=== PATIENT | female | born 1940 | race Caucasian/White ===

== ENCOUNTER 2023-07-02 17:12 | Inpatient (IN) | payer MEDICARE, SELFPAY ==
[2023-07-02] VITALS (7 sets, daily range): BP systolic 112–134; BP diastolic 52–87; BMI 24.6; BMI 23.4
--- NOTE | 2023-07-02 14:29 | ED.GENMED ---
History of Present Illness
General
Chief Complaint: Change in Mental Status
Source: patient and family
Exam Limitations: dementia
Time Seen by Provider: 07/02/23 13:41
Nursing documentation reviewed up to this point in time: agreed with
Travel History
Have you had any contact with someone who has COVID-19?: No
Do you have any symptoms of coronavirus? Fever > 100 degrees, chills, cough, shortness of breath, sore throat, loss of taste or smell, muscle aches, or headache?: No
History of Present Illness
History of Present Illness:
Patient with history of dementia, presents to ED from home secondary to increased confusion noted by family over the past 4 days. Patient was evaluated by her primary care physician 2 days ago, during which time urine test did not show any any
infection. Patient herself has no complaints however. Denies headache. Denies dizziness. Denies loss of sensation or weakness. Denies difficulty with speech. Denies chest pain. Denies abdominal pain. Denies recent change in medications or
diet. Of note, patient had mechanical fall 1 month ago during which time she fractured her left arm which is in a cast.
Review of Systems
Review of Systems
Allergies reviewed?: Yes
Unable to obtain full review of systems at this time due to: dementia
All Other Systems: Not applicable
Phy Exam
Physical Exam
Physical Exam:
Physical Exam
General: no apparent distress, not acutely ill. afebrile.
Head: nc/at. eomi
Neck: supple. no meningeal signs.
Heart: s1/s2 regular rate and rhythm, no murmur. equal radial pulses.
Lungs: no acute respiratory distress. clear bilaterally
Abdomen: normal bowel sounds. not tender.
Neuro: alert and oriented. no focal neurological deficits
Skin: no rash
Psychiatric: well kept. interactive and cooperative. pleasantly confused
Extremities: no edema. no calf tenderness.
Course
Orders/Labs/Results
Orders:
Orders
07/02/23 Breakfast
IDDSI 4 - Pureed
At Your Request: Non-Participating
Does patient need a safe tray?: No
07/02/23 14:00
Electrocardiogram (*1) Urgent
Reason for Study: TIA/Stroke
CT Head W/o Iv Contrast Urgent
Comment:
Reason For Exam: mental status change
EKG- Treatment ONCE
07/02/23 14:28
Basic Metabolic Panel Urgent
Complete Blood Count/With Diff Urgent
Glycohemoglobin (HgbA1c) Urgent
TSH Urgent
Troponin I Urgent
07/02/23 15:04
Urinalysis Reflex To Culture Urgent
Date Specimen was Collected: 07/02/23
Time Specimen was Collected: 15:03
Urine Microscopic Reflex Cult Urgent
07/02/23 16:29
Admit/Transfer Patient As Directed
Co-Sign Provider:
Level of Care: Inpatient admission
Assign to:: Telemetry
Physician / Group: santosh
Diagnosis: CVA
Reason for Telemetry: CVA/TIA
Date to Stop Telemetry: 07/05/23
Time to Stop Telemetry: 11:00
Reason for Hospitalization: cva
Expected length of stay greater than two midnights?: Yes
ELOS- Estimated Length of Stay in days: 3
I certify the patient meets the requirements for IP care: Yes
07/02/23 16:31
Code Status As Directed
Resuscitation Status: Full Code
07/02/23 16:44
Aspirin 325 mg PO NOW STA
Clopidogrel Bisulfate [Plavix] 300 mg PO NOW STA
07/02/23 17:50
DIETARY CONSULT Routine
Reason for Consult: stroke/TIA
07/02/23 19:15
Acetaminophen [Tylenol/Feverall] 650 mg RECTAL Q4HPRN PRN
Acetaminophen [Tylenol] 650 mg PO Q4HPRN PRN
07/02/23 19:15
Echo 2D MMode Color/Doppler Routine
Reason for Study: confusion
Case Management Consult ONCE
Case Management Consult: Discharge Planning
Comment: stroke/tia
NEUROLOGY CONSULT Urgent
Consulting Provider: Dimple Gillis
Was physician already notified: Yes
Service Engine Repairer Urgent
Activity As Directed
Activity Level: As Tolerated
NIH Stroke Scale As Directed
Directions: Per protocol
Comment: every shift and with any change in condition or mental status
Neurological Checks As Directed
Frequency: q4h
Additional Instructions:: q4h x 24h upon admission to the floor, then qshift & with any change in condition
and mental status
Patient Education As Directed
Type: Stroke education packet
Comment: provide to patient and family
Pneumatic Compression Sleeves As Directed
Type: Thigh high
Swallow Screening CVA/TIA ONLY As Directed
Comment: NPO until swallowing screening completed
If patient FAILS swallow screening:: NPO, Speech Therapy consult, Aspiration Precautions
If patient PASSES swallow screening, diet:: Cholesterol Lowering
Vital Signs As Directed
Frequency: Per unit guidelines
Ot Eval And Treat Routine
Pt Eval And Treat Routine
Activity Level: As Tolerated
Speech Therapy Eval & Treat Routine
DX Deep Vein Thrombosis Video Routine
07/02/23 19:30
Atorvastatin [Lipitor] 40 mg PO QPM
07/03/23 06:49
Basic Metabolic Panel IN AM
Cardiovascular Evaluation IN AM
Complete Blood Count/No Diff IN AM
07/03/23 08:00
Aspirin Chewable [Low Strength Aspirin] 81 mg PO DAILY
Clopidogrel Bisulfate [Plavix] 75 mg PO DAILY
07/04/23 06:00
Basic Metabolic Panel IN AM
Complete Blood Count/No Diff IN AM
07/05/23 06:00
Basic Metabolic Panel IN AM
Complete Blood Count/No Diff IN AM
07/05/23 11:00
DC Protocol for Telemetry ONCE
07/06/23 06:00
Basic Metabolic Panel IN AM
Complete Blood Count/No Diff IN AM
07/07/23 06:00
Basic Metabolic Panel IN AM
Complete Blood Count/No Diff IN AM
Abnormal Lab Results
07/02/23 07/02/23
14:28 15:04
RBC 4.00 L 10^6/uL
(4.20-5.40)
Hgb 11.9 L g/dL
(12.0-16.0)
Hct 35.1 L %
(37.0-47.0)
Absolute Lymphs (auto) 4.1 H 10^3/uL
(1.2-3.4)
Sodium 134 L mmol/L
(135-145)
Creatinine 0.5 L mg/dL
(0.6-1.0)
Leukocyte Esterase Rfl Trace A
(Negative)
Urine Bacteria (Reflex) Few A
(Negative)
07/02/23 14:28
07/02/23 14:28
Vital Signs
Initial and Last Documented VS:
Initial Vital Signs
Temp Pulse Resp BP Pulse Ox
98.6 F 70 16 129/67 96
07/02/23 12:02 07/02/23 12:02 07/02/23 12:02 07/02/23 12:02 07/02/23 12:02
Last Documented Vital Signs
Temp Pulse Resp BP Pulse Ox
98.2 F 89 16 118/74 95
07/03/23 03:09 07/03/23 03:09 07/03/23 03:09 07/03/23 03:09 07/03/23 03:09
MDM/Problems Addressed
MDM/Problems Addressed:
CT head report reviewed and discussed with on-call neurologist, Dr. Gillis. Recommends further workup and starting asa/plavix
*EKG
Interpreted by ED Provider?: Yes
EKG Intrepretation Date: 07/02/23
Heart Rate: 72
Rate: normal
Rhythm: sinus
[place]: normal axis
*Critical Care Note
Total Time (30-74mins, 75-104mins- exclusive of procedures): Not Applicable
ED Attending Note
-
Portions of this chart may have been created with voice recognition software.� Occasional wrong word or��sound alike� substitutions may have occurred due to the inherent limitations of voice recognition software.
Discharge Plan
Departure
Patient Disposition: Admit
Date of Disposition: 07/02/23
Time of Disposition: 16:11
Admit to: Telemetry
Presentation/result/management discussed w/ accepting MD/DO: Hospitalist
Patient with high blood pressure during this ER visit?: Yes
Discharge Problem:
Acute CVA (cerebrovascular accident)
Interventions
Interventions:
*Risk Screen - Suicide Last Done: 07/02/23 19:46
*General Assessment Last Done: 07/02/23 13:45
*Neglect/Abuse Screening Last Done: 07/02/23 13:45
ED- Fall Risk Assessment Last Done: 07/02/23 12:02
*ED COVID-19 Vaccine History Last Done: 07/02/23 12:02
*Nursing Disposition Last Done: 07/02/23 19:06
ED- Pulmonary Assessment Last Done: 07/02/23 13:47
ED- Neurological Assessment Last Done: 07/02/23 13:47
ED Swallowing Screen Last Done: 07/02/23 18:03
Discharge Date and Time
Discharge Date/Time: 07/02/23 19:07
[2023-07-02 14:37] LABS: % Basophils 0.7 % (0-2); % Eosinophils 2.5 % (0-6); % Immature Granulocytes 0.2 % (0-0.5); % Monocytes 4.9 % (1.7-9.3); % Neutrophils 48.7 % (42.2-75.2); Absolute Basophils 0.1 10^3/uL (0-0.2); Absolute Eosinophils 0.2 10^3/uL (0-0.7); Absolute Lymphocytes 4.1 10^3/uL (1.2-3.4); Absolute Monocytes 0.5 10^3/uL (0.1-0.6); Absolute Neutrophils 4.6 10^3/uL (1.4-6.5); Hematocrit 35.1 % (37.0-47.0); Hemoglobin 11.9 g/dL (12.0-16.0); Mean Corp Hgb Conc. 33.9 g/dL (33.0-37.0); Mean Corpuscular Hgb 29.8 pg (27.0-31.0); Mean Corpuscular Volume 87.8 fL (81.0-99.0); Mean Platelet Volume 10.1 fL (7.4-10.4); Nucleated Red Blood Cells % 0 %; Platelet Count 225 10^3/uL (130-400); Red Cell Dist. Width 13.5 % (11.5-14.5); White Blood Cell Count 9.4 10^3/uL (4.8-10.8)
[2023-07-02 15:04] LABS: Blood Urea Nitrogen 14 mg/dl (7-17); Calcium 9.4 mg/dl (8.4-10.2); Carbon Dioxide 25 mmol/L (22-30); Chloride 104 mmol/L (98-107); Estimated Creatinine Clearance 54 ml/min; Glucose 82 mg/dl (70-99); Sodium 134 mmol/L (135-145); eGFR > 60.00
[2023-07-02 15:18] LABS: Urine Albumin Negative (Neg - Trace); Urine Bilirubin Negative (Negative); Urine Character Clear (Clear); Urine Color Yellow; Urine Glucose Negative (Negative); Urine Ketone Negative (Negative); Urine Leukocyte Trace (Negative); Urine Nitrite Negative (Negative); Urine Occult Blood Negative (Negative); Urine Urobilinogen Negative (Neg - 1+)
[2023-07-02 15:25] LABS: Urine Bacteria Few (Negative); Urine Red Blood Cell 0-2 /HPF (0-2)
[2023-07-02 15:25] LABS: Troponin I < 0.012 ng/ml
[2023-07-02 15:33] LABS: TSH 1.96 uIU/ml (0.47-4.68)
--- NOTE | 2023-07-02 16:15 | HPS.HSE ---
Addendum entered and electronically signed by Shannon Amaral MD 07/11/23 14:34:
Medications on admission are unable to be verified or confirmed at the time of admission
Original Note:
Family Physician
-
Family Physician: Amy Lopez
Chief Complaint
-
confusion
History of Present Illness
82-year-old with past medical history for coronary artery disease, hyperlipidemia, dementia presented to us with confusion since Tuesday night. Patient did not remember her family members. Patient could not remember where she was. Which
progressively got worse. She was taken to PCP, her urinalysis were negative. Patient denied any fever or chills. Patient denied any headache, dizziness, syncopal episode patient denied chest pain or short of breath. Patient denied abdominal
pain, nausea, vomiting, diarrhea. Patient denied dysuria hematuria.
patient had fall couple weeks ago, displaced wrist.she has a cast on her left wrist.
Head CT with 4.5 cm subacute versus old nonhemorrhagic infract in the left temporal lobe, 3 mm acute versus old lateral infract in the right thalamus. Patient received a dose of aspirin and Plavix in ER. Admitting for further management
Medical History
Past Medical History
Past Medical History: Reports Other
Additional Past Medical History:
Coronary artery disease
Dementia
thorat ca
Past Surgical History: Reports Other
Additional Past Surgical History:
Coronary artery stented
part of tongue removed
Social History
Tobacco: Non-smoker
Alcohol: None
Drug: None
Living: With Family
Family History
Family History: Not pertinent
Allergies / Home Medications
Allergies reflects when Allergies were last updated in [employer].
Home Medications with original date entered in [facility]
Allergy/Medication List:
Allergies
Allergy/AdvReac Type Severity Reaction Status Date / Time
Iodinated Contrast Media Allergy Unknown Verified 07/02/23 13:31
Review of Systems
-
Constitutional: Reports No Symptoms
EENT: Reports No Symptoms
Respiratory: Reports No Symptoms
Cardiac: Reports No Symptoms
Abdomen/GI: Reports No Symptoms
: Reports No Symptoms
Musculoskeletal: Reports No Symptoms
Skin: Reports No Symptoms
Neurological: Reports No Symptoms
Endocrine: Reports No Symptoms
Hematologic/Lymphatic: Reports No Symptoms
Psych: Reports Other (Confusion)
Physical Exam
Vital Signs
Vital Signs
Temp Pulse Resp BP Pulse Ox
98.6 F 66 16 112/67 95
07/02/23 12:02 07/02/23 13:45 07/02/23 13:45 07/02/23 13:34 07/02/23 13:45
Physical Exam
General: Well Developed, Well Nourished and No Apparent Distress
HEENT: NormoCephalic, Moist mucous membranes and Atraumatic
Respiratory: Clear
Cardiac: S1/S2 and Regular Rhythm; No Murmur or Rub
GI: Soft, Non Tender, Non Distended and Normal Bowel Sounds; No Organomegaly
Rectal: Deferred by Provider
Musculoskeletal: No Clubbing, No Cyanosis and No Edema
Skin: No Rash
Neuro: AO x 3 and Nonfocal/grossly intact
Psych: Calm
Laboratory Results
-
07/02/23 14:28
07/02/23 14:28
Laboratory Results
Troponin I < 0.012 ng/ml 07/02/23 14:28
Data Reviewed
-
CT Scan: Report Reviewed by me
Lab Data: Labs Reviewed by me
Impression/Plan
-
# Metabolic encephalopathy likely from subacute infract
-Head CT 4.5 cm subacute versus old nonhemorrhagic infarct in the left temporal lobe.There is 3 mm acute versus old lacunar infarct in the right thalamus.There is moderate diffuse cortical atrophy with extensive nonspecific white matter changes
-Aspirin and Plavix continued
-MRI/MRA
-obtain ECHO
-lipid profile, a1c
-obtain UA
-PT/OT consult
-Neurology consult
# DVT prophylaxis
-SCD
# CODE STATUS
-Full code
--- NOTE | 2023-07-02 16:42 | W.PN.UPDATE ---
Update Note
Progress Note Update
HPI: 82-year-old with past medical history for coronary artery disease, hyperlipidemia, dementia presented with increasing confusion since Tuesday night. She was taken to her PCP, and her urinalysis was apparently negative. Per family has also
noted some expressive and receptive aphasia.
Of note, she fell a couple of weeks ago and displaced her wrist. She currently has a cast on her left forearm.
In the ED, her head CT noted a 4.5 cm subacute versus old nonhemorrhagic infract in the left temporal lobe, 3 mm acute versus old lateral infract in the right thalamus.
Patient received a dose of aspirin and Plavix in ER.
A/P:
# Acute Metabolic encephalopathy with some expressive and receptive aphasia likely from subacute infract
Head CT noted 4.5 cm subacute versus old nonhemorrhagic infarct in the left temporal lobe. There is 3 mm acute versus old lacunar infarct in the right thalamus.
Check MRI brain and MRA head and neck.
Cont Aspirin and Plavix
Check ECHO
Check Lipid and A1c
SPL eval, pureed diet for now
Can obtain UA
Neurology consult
PT/OT eval
DVT prophylaxis-SCD
CODE STATUS-Full code
[2023-07-02] MEDS: ASPIRIN 325 MG PO (16:47)
[2023-07-02] MEDS: PLAVIX 300 MG PO (16:47)
--- NOTE | 2023-07-02 20:00 | PTCARENOTE ---
Pt arrived to unit around 193. Daughter and son-in law at bed side and assisted with admission questions. Pt ambulated fro stretcher to bed with the assistance of her cane brought from home. Pt vital signs stable, and denies any pain. NIH scale,
and swallow screen immediately performed at bedside. Pt passed the swallow exam and then proceeded to consume the puree dinner that was sent up with her. Bed alarm placed. Pt is oriented to the room and call carrasquillo is within reach. Pt instructed to
ring appropriately.
[2023-07-02] MEDS: LIPITOR 40 MG PO (22:34)
[2023-07-02] MEDS: LEXAPRO 5 MG PO (22:38)
[2023-07-03] VITALS (8 sets, daily range): BP systolic 88–129; BP diastolic 52–74; PULSE 64–76; O2SAT 95; BMI 23.4
[2023-07-03 07:47] LABS: Hemoglobin 11.8 g/dL (12.0-16.0); Mean Corp Hgb Conc. 32.8 g/dL (33.0-37.0); Mean Corpuscular Hgb 29.4 pg (27.0-31.0); Mean Corpuscular Volume 89.8 fL (81.0-99.0); Mean Platelet Volume 10.5 fL (7.4-10.4); Platelet Count 238 10^3/uL (130-400); Red Blood Cell Count 4.01 10^6/uL (4.20-5.40); Red Cell Dist. Width 13.4 % (11.5-14.5); White Blood Cell Count 9.6 10^3/uL (4.8-10.8)
[2023-07-03 08:14] LABS: Blood Urea Nitrogen 11 mg/dl (7-17); Calcium 9.6 mg/dl (8.4-10.2); Carbon Dioxide 23 mmol/L (22-30); Chloride 106 mmol/L (98-107); Estimated Creatinine Clearance 54 ml/min; Glucose 83 mg/dl (70-99); HDL Cholesterol 49 mg/dl; LDL Cholesterol, Calculated 86 mg/dl; Potassium 4.2 mmol/L (3.5-5.1); Sodium 137 mmol/L (135-145); Total Cholesterol 157 mg/dl (50-199); Triglyceride 112 mg/dl (10-149); Very Low Density Lipoprotein 22 mg/dl (0-30); eGFR > 60.00
--- NOTE | 2023-07-03 10:04 | PTOTSP ---
SPEECH THERAPY SWALLOW EVALUATION:
Patient presents with clinical signs of oropharyngeal dysphagia, likely acute related to subacute CVA, and possibly chronic related to possible unknown history of head/neck cancer? per patient report (no note of this in chart review), though pt a
poor historian. Asymmetrical dorsal lingual surface. Unable to fully assess solids at this time given poorly fitting dentures. Pt remains at risk for aspiration given confusion/impulsivity. Recommend IDDSI Level 4 Puree diet, thin liquids. 100%
supervision with meals. Medications whole in puree. Aspiration precautions: Upright positioning, small single sips, slow rate of intake. Speech therapy to follow, assess diet tolerance and modify as appropriate, re-assess solids, assess
speech/language/cognitive communication skills with full evaluation to follow.
RECOMMEND:
1) IDDSI Level 4 Puree diet, thin liquids
2) Medications whole in puree
3) 100% supervision with meals
4) Aspiration precautions: Upright positioning, small single sips, slow rate of intake
5) Speech therapy to follow, assess diet tolerance and modify as appropriate, re-assess solids, assess speech/language/cognitive communication skills with full evaluation to follow
[2023-07-03 10:13] LABS: Glycohemoglobin (HgbA1c) 5.6 % (4.0-5.6)
--- NOTE | 2023-07-03 11:04 | W.PN.HOSP.TC ---
Today's Communication/Plan
-
see A/P
Assessment / Plan
Assessment / Plan
HPI: 82-year-old with past medical history for coronary artery disease, hyperlipidemia, dementia presented with increasing confusion since Tuesday night. She was taken to her PCP, and her urinalysis was apparently negative. Per family has also
noted some expressive and receptive aphasia.
Of note, she fell a couple of weeks ago and displaced her wrist. She currently has a cast on her left forearm.
In the ED, her head CT noted a 4.5 cm subacute versus old nonhemorrhagic infract in the left temporal lobe, 3 mm acute versus old lateral infract in the right thalamus.
Patient received a dose of aspirin and Plavix in ER.
A/P:
# Acute Metabolic encephalopathy with some expressive and receptive aphasia likely from subacute infract
Head CT noted 4.5 cm subacute versus old nonhemorrhagic infarct in the left temporal lobe. There is 3 mm acute versus old lacunar infarct in the right thalamus.
Check MRI brain and MRA head and neck.
Cont Aspirin and Plavix
Check ECHO
LDL at 86
A1c at 5.6%
SPL eval recc to cont pureed diet and thin liquid
UA only showing few bacteria and trace leucocyte esterase
Neurology consulted
PT/OT eval
DVT prophylaxis- SCD
CODE STATUS- Full code
updated granddaughter on the phone
Anticipated Discharge: 24 - 48 hours
Subjective/Interval History
-
Date of Service: July 03, 2023
Objective Data
-
Labs:
Laboratory Results
07/03/23
06:49
WBC 9.6
Hgb 11.8 L
Hct 36.0 L
Plt Count 238
Sodium 137
Potassium 4.2
Chloride 106
Carbon Dioxide 23
BUN 11
Creatinine 0.4 L
Glucose 83
Calcium 9.6
Vital Signs:
Vital Signs
Temp Pulse Resp BP Pulse Ox
36.7 C 78 16 110/61 95
07/03/23 07:12 07/03/23 07:12 07/03/23 07:12 07/03/23 07:12 07/03/23 07:12
I&O
07/02/23 07/03/23 07/04/23
06:59 06:59 06:59
Intake Total 120 / 120
Balance 120 / 120
Review of Systems
-
All other systems: Reviewed and negative
Physical Exam
-
General: Well Developed, Well Nourished, No Apparent Distress, Comfortable and Conversant; Negative Respiratory Distress
HEENT: Normocephalic, Atraumatic, Nose Appears Normal and Ears Appear Normal; Negative Oxygen
Respiratory: Clear to Auscultation and Non Labored Respirations; Negative Accessory Resp Muscle Use
Cardiac: Regular Rhythm and S1/S2
GI: Soft, Nontender, Nondistended and Normal Bowel Sounds
Skin: Warm and Dry
Neuro: Awake, Alert and Nonfocal/Grossly Intact
Psych: Calm
Data Reviewed
-
CT Scan: Report Reviewed by me
Labs: Labs Reviewed by me
--- NOTE | 2023-07-03 11:55 | CM ---
CM following re: discharge planning.
Reviewed pt's chart, met with pt and spoke to pt's granddaughter Reanna.
Pt is an 82 year old female, admitted with primary dx of CVA.
Pt is not a great historian and she tried all her best to participate in the interview. Per granddaughter Reanna, pt lives with daughter Shira in [place], 2 steps to enter. per granddaughter, pt has been diagnosed with dementia 2-3 years ago and it has
been observed progressing. per granddaughter, pt ambulates with a cane.
Pt's granddaughter asked to help with the process of obtaining Medicaid to apply for caregiver/periodontal assistant services. [employer] [place] phone number provided and granddaughter will call to apply for community based services.
PT and OT evaluations noted - home PT vs SNF recommended. Pt's family is aware and they aware of choices/resources.
PCP: Amy Lopez
Pharmacy: [facility]
D/c plan: home PT vs SNF. Family deciding.
CM will follow with discharge plan updates as hospitalization progresses
[2023-07-03] MEDS: PLAVIX 75 MG PO (12:42)
[2023-07-03] MEDS: LOW STRENGTH ASPIRIN 81 MG PO (12:43)
--- NOTE | 2023-07-03 14:12 | CON.NEURO4 ---
Consultation - Neurology 4
-
CONSULTING PHYSICIAN: Elis
REFERRING PHYSICIAN: ED
DICTATED BY: Elis
DATE/TIME OF REQUEST: 07/02/23 afternoon
DATE/TIME OF CONSULTATION: 07/03/23 at 1330
Reason for Consultation: stroke
History of Present Illness:
82-year-old female with a history of dementia due to alcohol abuse, prior stroke 20 to 30 years ago, CAD and throat cancer brought in yesterday after experiencing increasing confusion since Tuesday. Family reported that she did not remember them
and did not know where she was. Her memory progressively worsened. She also had some expressive and receptive aphasia. She was taken to her PCP first and her UA was negative.
She had an unwitnessed fall a few weeks ago and has a cast on her left wrist. Head CT in the ER showed concern for stroke and she was admitted. Her daughter states that she is now back to her baseline. She was loaded with DAPT in the ED.
Past Medical History: prior stroke 20-30 years ago with 'weakness on one side,' dementia due to ETOH abuse diagnosed 7 years ago at [facility], CAD, throat cancer
Surgical History: cardiac stent, tongue resection
Family History: reviewed, noncontributory
Social History: quit ETOH but previously drank heavily for at least 5 years, nonsmoker, no drug use, lives with daughter
Allergies
Iodinated Contrast Media Allergy (Verified 07/02/23 13:31)
Unknown
Home Medications Table - record
�Medication �Instructions �Recorded �Confirmed
atorvastatin 40 mg tablet 40 mg PO DAILY High Cholesterol 07/02/23
escitalopram oxalate 5 mg tablet 5 mg PO DAILY Mental Health/Anxiety 07/02/23
Review of Symptoms:
Patient denies any fever, headache, chest pain, shortness of breath, GI or symptoms.
�Per the HPI.�All systems are reviewed negative except above.
Vital Signs:
Vital Signs
Temp Pulse Resp BP Pulse Ox
97.7 F 65 18 112/68 96
07/03/23 11:51 07/03/23 11:51 07/03/23 11:51 07/03/23 11:51 07/03/23 11:51
Lab Results
07/03/23 06:49
07/03/23 06:49
Sodium 137 mmol/L (135-145) 07/03/23 06:49
Potassium 4.2 mmol/L (3.5-5.1) 07/03/23 06:49
BUN 11 mg/dl (7-17) 07/03/23 06:49
Glucose 83 mg/dl (70-99) 07/03/23 06:49
Calcium 9.6 mg/dl (8.4-10.2) 07/03/23 06:49
LDL Cholesterol, Calc 86 mg/dl 07/03/23 06:49
Physical Exam:
The patient is afebrile, heart sounds S1 and S2 are regular, and chest is clear to auscultation bilaterally.
NIH Stroke Scale:
I performed the NIH stroke scale on the patient on 07/03/23 at 1330. The patient scored 2 points on the NIH stroke scale assessment, which were assigned as follows: inability to state month, age which appears to be her baseline.
Neurologic Examination:
The patient is awake, alert and oriented x 2, unable to state month--thought it was April; thought her age was 52; gave a vague historian; dtr provided details at bedside; patient has a h/o dementia. She is able to follow commands and answer
questions appropriately. There is no aphasia or dysarthria. On cranial nerve assessment, pupils are 3 mm bilateral, round and reactive to light and accommodation. Visual robbins are full. Extraocular movements are intact. Facial sensations are intact
and bilaterally symmetrical, there is no facial asymmetry. Hearing is intact bilaterally to normal conversation volume. Tongue palate and uvula are midline. Sternocleidomastoid strengths are full bilaterally. Motor strengths are 5/5 bilateral upper
and lower extremities on medical research [place] scale except LLE which was 5-/5 initially but seemed to be pain limited--5/5 on repeat exam. There is no drift or involuntary movement noted. Deep tendon reflexes are 2+ bilateral upper and lower
extremities and Babinski is absent bilaterally. Sensations of pain, touch, temperature and vibration are intact and bilaterally symmetrical. There was no extinction noted on double simultaneous stimulation. Coordination is intact by finger to nose
bilaterally. Exam of LUE somewhat limited, L forearm cast in place.
Neuro Imaging:
HCT:
4.5 cm subacute versus old nonhemorrhagic infarct in the left temporal lobe
There is 3 mm acute versus old lacunar infarct in the right thalamus
There is moderate diffuse cortical atrophy with extensive nonspecific white matter changes as described above.
Impression:
SERGIO YUSUF is a 82 year old F who has presented to the hospital with worsening confusion since Tuesday night. She has now returned to baseline. HCT done in ED concerning for stroke.
Patient has the following risk factors for their symptoms: age, old stroke, alcohol abuse, CAD, throat ca
IV Tenecteplase/IAT candidacy: out of the window
Recommendations:
-check MRI brain without contrast to clarify timing of strokes seen on HCT
-BP goal is normotension.
-loaded with dapt in ED, continue dapt x 21 days, then d/c plavix, continue ASA 81mg daily
-check CUS
- Check hemoglobin A1C. Goal is normoglycemia.
- Increase atorvastatin to 80mg qhs. LDL is 86. Goal LDL after stroke is <70.
- Check an echocardiogram.
-PT/OT/ST evaluations
- DVT prophylaxis
-continue neurochecks
Discussed patient care with:
[2023-07-03] MEDS: LIPITOR 80 MG PO (19:58)
[2023-07-03 20:42] LABS: Urine Albumin Negative (Neg - Trace); Urine Bilirubin Negative (Negative); Urine Character Slightly Cloudy (Clear); Urine Color Yellow; Urine Glucose Negative (Negative); Urine Ketone Negative (Negative); Urine Leukocyte 2+ (Negative); Urine Nitrite Positive (Negative); Urine Occult Blood Negative (Negative); Urine Specific Gravity 1.015 (<1.030); Urine Urobilinogen Negative (Neg - 1+)
[2023-07-03 20:48] LABS: Urine Squamous Cell 0-2 /LPF (Few)
[2023-07-03 20:49] LABS: Urine Bacteria Many (Negative); Urine Red Blood Cell None Seen /HPF (0-2); Urine White Cell 70-80 /HPF (0-5)
[2023-07-03] MEDS: LEXAPRO 5 MG PO (22:32)
[2023-07-04] VITALS (8 sets, daily range): BP systolic 100–120; BP diastolic 46–72; PULSE 85
--- NOTE | 2023-07-04 07:58 | W.PN.NEURO.1 ---
Addendum entered and electronically signed by Ethan Esteves MD 07/04/23 10:09:
I saw and evaluate the patient I reviewed the note by Ameena Powell agree with the findings the following comments:
82-year-old woman with a past medical history of dementia, previous ischemic stroke, coronary artery disease and throat cancer presented to hospital with change in mental status from baseline with increased confusion. She had disorientation and did
not know where she was located.
No fevers no leukocytosis urinalysis does show elevated white blood cells leukocyte esterase and bacteria
CT head noncontrast with age-indeterminate infarct on the left temporal lobe
Assessment: Pre-existing dementia with history of ischemic stroke. Change in mental status. Possibly new ischemic stroke although this may be old finding and change in mental status due to pre-existing dementia or metabolic abnormality on top of
pre-existing dementia and history of stroke that would produce a mental status change.
Recommendations
-Check MRI brain without contrast
-Not recommending carotid ultrasound due to dementia and would not be candidate for carotid revascularization
-DAPT therapy for 21 days
-Follow urine culture, if brain MRI negative for acute infarct and would consider treating as possible UTI producing mental status changes
-Minimize sedating medications
-Check transthoracic echocardiogram monitor on cardiac telemetry
Original Note:
Documented by User: Ameena William NP 07/04/23 09:42
Today's Communication / Plan
-
.
Neuro Assessment/Plan
Assessment
82-year-old female with a history of dementia due to alcohol abuse, prior stroke 20 to 30 years ago, CAD and throat cancer presented to the ER on 07/02/23 with report of increasing confusion since 06/29/23. Family reported that she did not remember
them and did not know where she was. Her memory progressively worsened. She also had some expressive and receptive aphasia. She also had an unwitnessed fall several weeks ago with resultant left wrist fracture. She was taken to her PCP first and
her UA was negative. CT head was obtained on arrival in the ER and demonstrates a subacute versus old left temporal lobe ischemic infarct in addition to an old right thalamic lacunar infarct. She was not a candidate for TNK/IAT due to being outside
of the time window. Urinalysis here is suggestive of UTI.
-CT head 07/03/23: 4.5 cm subacute versus old nonhemorrhagic infarct in the left temporal lobe. There is 3 mm acute versus old lacunar infarct in the right thalamus. There is moderate diffuse cortical atrophy with extensive nonspecific white matter
changes as described above.
I. Subacute vs old left temporal lobe ischemic stroke.
II. Old right thalamic lacunar infarct.
III. Urinalysis suggestive of UTI.
IV. Dementia.
Plan
-Continue DAPT for 21 days. After 21 days, discontinue Plavix and continue aspirin 81mg daily only, indefinitely.
-MRI brain noncontrast ordered/pending.
-TTE ordered/pending.
-Goal normotension.
-LDL goal <70. LDL is 86. Home atorvastatin increased from 40mg to 80mg daily.
-Goal normoglycemia, hbA1c is 5.6.
-NIHSS and neurological checks per unit guidelines.
-Provide patient with a stroke education packet.
-PT/OT/ST evaluations.
-DVT prophylaxis.
-Will follow pending results. Patient will need follow-up with Neurology as an outpatient, may see the P[employer] PRESS OPERATOR or one of the physicians.
Subjective/Objective
Subjective Data
Date of Service: July 04, 2023
No acute events overnight. Patient reports feeling at her baseline today. She denies any headache, dizziness, vision changes, speech/swallow difficulty, numbness, nausea, weakness, chest pain, palpitations, and shortness of breath.
Objective Data
Vital Signs
Temp Pulse Resp BP Pulse Ox
98.0 F 76 20 120/71 96
07/04/23 03:06 07/04/23 03:06 07/04/23 03:06 07/04/23 03:06 07/04/23 03:06
Lab Results
07/03/23 06:49
07/03/23 06:49
Sodium 137 mmol/L (135-145) 07/03/23 06:49
Potassium 4.2 mmol/L (3.5-5.1) 07/03/23 06:49
BUN 11 mg/dl (7-17) 07/03/23 06:49
Glucose 83 mg/dl (70-99) 07/03/23 06:49
Calcium 9.6 mg/dl (8.4-10.2) 07/03/23 06:49
LDL Cholesterol, Calc 86 mg/dl 07/03/23 06:49
Patient Allergies
Iodinated Contrast Media Allergy (Verified 07/02/23 13:31)
Unknown
LDL Level: >70, statin ordered
Review of Systems
-
History Source: Patient
EENT: Negative Blurry Vision, Decreased Vision or Swallowing Difficulty
Respiratory: Negative Cough or Trouble Breathing
Cardiac: Negative Chest Pain or Palpitations
Abdomen/GI: Negative Nausea
Genitourinary: Negative Dysuria or Difficulty Voiding
Neuro: Negative Dizzy, Headache, Weakness, Numbness, Ataxia or Speech Problem
Physical Exam
-
General: Well Developed, Well Nourished and No Apparent Distress
Eyes: No Ptosis and PERRLA
HEENT: Normocephalic and Atraumatic
Neck: Full Range of Motion
Respiratory: No Dyspnea
GI: Non-distended
Extremities: No Clubbing, No Cyanosis and No Edema
Psych: Confused
Extended Neurological Exam
Mood & Affect: Mood Unremarkable and Affect Unremarkable
Attention Span & Concentration: Awake, Alert and Interactive
Memory: Reduced (Oriented to person and time, not place/situation.)
Tremor: Hand Tremor Absent and Head Tremor Absent
Involuntary Movement: None
Speech: Quality Unremarkable, Quantity Unremarkable and Rate of Production Unremarkable
Cranial Nerve II: Left Eye: Pupillary Reactivity Unremarkable, Pupillary Size Unremarkable and Visual Munoz Intact
Cranial Nerve II: Right Eye: Pupillary Reactivity Unremarkable, Pupillary Size Unremarkable and Visual Munoz Intact
Cranial Nerves III, IV, : Extraocular Movement: Extraocular Movement Full in all Directions
Cranial Nerve V: Facial Sensation: Intact to Light Touch
Cranial Nerve VII: Facial Symmetry: Normal Facial Symmetry
Cranial Nerve VIII: Hearing: Unremarkable Hearing to Normal Conversational Volume
Cranial Nerves IX, X: Palate Movement: Palate Elevation Symmetric
Cranial Nerve XI: Shoulder Shrug: Unremarkable
Cranial Nerve XII: Tongue Protusion: Midline
Muscle Strength, Overall: Full Throughout
Muscle Bulk & Tone: Bulk Unremarkable and Tone Unremarkable
Pronator Drift: No Drift in Upper Extremities and No Drift in Lower Extremities
Deep Tendon Reflexes: Unremarkable Throughout
Touch Sensation: Double Simultaneous Stimulation Unremarkable
Coordination: [id number] Testing Unremarkable
Babinski Sign: Absent Bilaterally
Modified Trent Score (MRS)
-
Modified Trent Scale (mRS): No symptoms
Score: 0
Data Reviewed
-
CT Head: Report Reviewed and Image Reviewed
MRI Head: Pending
Labs: Report Reviewed
Lipid Profile: Report Reviewed
HgbA1C: Report Reviewed
Reviewed with: Physician and Patient
Medications
-
Active Medications
Generic Name Dose Route Start Last Admin
Trade Name Freq PRN Reason Stop Dose Admin
Acetaminophen 650 mg 07/02/23 19:15
Acetaminophen 650 Mg Rectal Suppository RECTAL 07/30/23 19:14
Q4HPRN PRN
SHERMAN, mild pain, or temp >100.4F
Acetaminophen 650 mg 07/02/23 19:15
Acetaminophen 325 Mg Tablet PO 07/30/23 19:14
Q4HPRN PRN
SHERMAN, mild pain, or temp >100.4F
Aspirin 81 mg 07/03/23 08:00 07/04/23 08:50
Aspirin 81 Mg Chewable Tablet PO 07/31/23 07:59 81 mg
DAILY JENNIFER Administration
Atorvastatin Calcium 80 mg 07/03/23 18:00 07/03/23 19:58
Atorvastatin (Lipitor) 80 Mg Tablet PO 07/31/23 17:59 80 mg
QPM JENNIFER Administration
Clopidogrel Bisulfate 75 mg 07/03/23 08:00 07/04/23 08:50
Clopidogrel 75 Mg Tablet PO 07/31/23 07:59 75 mg
DAILY JENNIFER Administration
Escitalopram Oxalate 5 mg 07/02/23 22:00 07/03/23 22:32
Escitalopram 5 Mg Tablet PO 07/30/23 21:59 5 mg
HS JENNIFER Administration
Lorazepam 1 mg 07/04/23 11:00
Lorazepam 2 Mg/Ml Vial IV 07/04/23 11:01
ONCE ONE
Sodium Chloride 0 flush 07/02/23 20:00
Sodium Chloride 0.9% (Flush) Syringe IV 07/30/23 19:59
PER PROTOCOL JENNIFER
Sodium Chloride 0.5 ml 07/04/23 11:00
Nss (Pf) 10 Ml Vial For Ativan 1 Mg Dose IV 07/04/23 11:01
ONCE ONE
Home Medications
�Medication �Instructions �Recorded
atorvastatin 40 mg tablet 40 mg PO DAILY High Cholesterol 07/02/23
escitalopram oxalate 5 mg tablet 5 mg PO DAILY Mental Health/Anxiety 07/02/23
NIH Stroke Score
Subsequent NIH Scale
Date of Subsequent NIH Scale: 07/04/23
Time of Subsequent NIH Scale: 08:45
NIH Stroke Score
Level of Consciousness: 0 - Alert
LOC Questions: 0-Answers both correctly
LOC Commands: 0-Performs both correctly
Best Horizontal Gaze: 0-Normal
Visual Munoz: 0=Normal, no visual loss
Facial Palsy: 0=Normal, symmetrical
Motor - Right Arm: 0=No drift 10 seconds
Motor - Left Arm: 0=No drift 10 seconds
Motor - Right Le-No drift 5 seconds
Motor - Left Le-No drift 5 seconds
Limb Ataxia: 0-Absent
Sensation: 0-Normal
Best Language: 0-No aphasia
Dysarthria: 0-Normal
Extinction and Inattention: 0-No abnormality
Total Score:: 0
Modified Juni (mRS) Score
Modified Juni Scale (mRS): No symptoms
Score: 0

Documented by User: Ethan Esteves MD 07/04/23 10:06
Modified Trent Score (MRS)
-
Score: 0
NIH Stroke Score
NIH Stroke Score
Total Score:: 0
Modified Juni (mRS) Score
Score: 0
[2023-07-04] MEDS: PLAVIX 75 MG PO (08:50)
[2023-07-04] MEDS: LOW STRENGTH ASPIRIN 81 MG PO (08:50)
[2023-07-04] MEDS: NSS (PRESERVATIVE FREE) 0.5 ML IV (11:16)
[2023-07-04] MEDS: ATIVAN 1 MG IV (11:16)
--- NOTE | 2023-07-04 15:33 | CM ---
energy project manager reviewed patient's chart and met with patient and son at bedside, patient lives with daughter and Granddaughter Reanna, and plan is to home with [facility] visiting nurses, referral sent to [facility], and corrections caseworker asked patient's
granddaughter Reanna to follow up with some programs to assist patient, and enable patient to stay in her home as long as possible, [employer] [facility] [employer] program discussed along with [facility]. Patient's granddaughter to apply for [employer] secondary.
Plan; Home with daughter and granddaughter and [facility] visiting nurses.
[facility] [phone]
--- NOTE | 2023-07-04 16:51 | W.PN.HOSP.TC ---
Today's Communication/Plan
-
Await MRI
PT OT
Get OP med list
Assessment / Plan
Assessment / Plan
HPI: 82-year-old with past medical history for coronary artery disease, hyperlipidemia, dementia presented with increasing confusion since Tuesday night. She was taken to her PCP, and her urinalysis was apparently negative. Per family has also
noted some expressive and receptive aphasia.
Of note, she fell a couple of weeks ago and displaced her wrist. She currently has a cast on her left forearm.
In the ED, her head CT noted a 4.5 cm subacute versus old nonhemorrhagic infract in the left temporal lobe, 3 mm acute versus old lateral infract in the right thalamus.
Patient received a dose of aspirin and Plavix in ER.
CVS: S1-S2 normal
Chest: CTA B/L
Abdomen: Soft, NT / Bowel sounds present
Extremities: No edema, left fore arm cast
PROCESS SAFETY SPECIALIST: Non focal exam
A/P:
# Acute Metabolic encephalopathy with some expressive and receptive aphasia likely from subacute infract
Head CT noted 4.5 cm subacute versus old nonhemorrhagic infarct in the left temporal lobe. There is 3 mm acute versus old lacunar infarct in the right thalamus.
Check MRI brain and ECHO
Cont Aspirin and Plavix
LDL at 86
A1c at 5.6%
SPL eval recc to cont pureed diet and thin liquid
UA only showing few bacteria and trace leucocyte esterase
Neurology following
PT/OT eval
Exam unremarkable, pt able to ambulate
#Abnormal U/A- Will treat as UTI while waiting for CX
#Suspect Dementia
#DVT prophylaxis- SCD
#CODE STATUS- Full code
Pt has never been here before
D/W RN at bed side
Anticipated Discharge: Within 24 hours
Subjective/Interval History
-
Date of Service: July 04, 2023
Objective Data
-
Vital Signs:
Vital Signs
Temp Pulse Resp BP Pulse Ox
97.6 F 84 20 113/68 95
07/04/23 13:03 07/04/23 13:03 07/04/23 13:03 07/04/23 13:03 07/04/23 13:03
I&O
07/03/23 07/04/23 07/05/23
06:59 06:59 06:59
Intake Total 120 / 120 800 / 800
Balance 120 / 120 800 / 800
[2023-07-04] MEDS: STERILE WATER FOR INJECTION 10 ML IV (18:11)
[2023-07-04] MEDS: ROCEPHIN 1000 MG IV (18:11)
[2023-07-04] MEDS: LIPITOR 80 MG PO (18:11)
[2023-07-04] MEDS: LEXAPRO 5 MG PO (23:25)
[2023-07-05 04:48] VITALS: BP 105/66
--- NOTE | 2023-07-05 07:56 | W.PN.NEURO.1 ---
Addendum entered and electronically signed by Ethan Esteves MD 07/05/23 11:27:
I saw and evaluated the patient I reviewed the note by Ameena Powell agree with the findings the following comments:
82-year-old woman with past medical history of dementia felt due to prior alcohol abuse, previous ischemic stroke, coronary artery disease, throat cancer presented to hospital with confusion and speech abnormality starting around 06/28.
Neurologic examination unchanged, shows some confusion and paucity of spontaneous speech, difficulty with complex commands, cranial nerves and motor function intact/
MRI brain shows an acute nonhemorrhagic left MCA territory ischemic stroke in the temporal lobe
Transthoracic echocardiogram reviewed
Assessment: New ischemic stroke explaining the mental status change which is most likely an aphasia. Cardioembolic versus atheroembolic source. Risk factors are coronary artery disease, and age.
Recommendations
-Speech physical Occupational Therapy
-Goal normotension
-Monitor on cardiac telemetry
-Would pursue short-term cardiac monitoring in the outpatient setting and if negative would pursue implanted cardiac Linq
-Not recommending carotid ultrasound given do not feel she would be candidate for carotid revascularization given existing dementia and unfavourable risks/benefits
-DAPT therapy 21 days with aspirin/clopidogrel then aspirin 81 mg thereafter
-Increase statin dose to 80 mg daily
Original Note:
Documented by User: Ameena William NP 07/05/23 10:54
Today's Communication / Plan
-
.
Neuro Assessment/Plan
Assessment
82-year-old female with a history of dementia due to alcohol abuse, prior stroke 20 to 30 years ago, CAD and throat cancer presented to the ER on 07/02/23 with report of increasing confusion since 06/29/23. Family reported that she did not remember
them and did not know where she was. Her memory progressively worsened. She also had some expressive and receptive aphasia. She also had an unwitnessed fall several weeks ago with resultant left wrist fracture. She was taken to her PCP first and
her UA was negative. CT head was obtained on arrival in the ER and demonstrates a subacute versus old left temporal lobe ischemic infarct in addition to an old right thalamic lacunar infarct. She was not a candidate for TNK/IAT due to being outside
of the time window. Urinalysis here is suggestive of UTI.
-CT head 07/03/23: 4.5 cm subacute versus old nonhemorrhagic infarct in the left temporal lobe. There is 3 mm acute versus old lacunar infarct in the right thalamus. There is moderate diffuse cortical atrophy with extensive nonspecific white matter
changes as described above.
I. Subacute vs old left temporal lobe ischemic stroke.
II. Old right thalamic lacunar infarct.
III. Urinalysis suggestive of UTI.
IV. Dementia.
Plan
-Continue DAPT for 21 days. After 21 days, discontinue Plavix and continue aspirin 81mg daily only, indefinitely.
-MRI brain noncontrast ordered/pending.
-Goal normotension.
-LDL goal <70. LDL is 86. Home atorvastatin increased from 40mg to 80mg daily.
-Goal normoglycemia, hbA1c is 5.6.
-NIHSS and neurological checks per unit guidelines.
-Provide patient with a stroke education packet.
-PT/OT/ST evaluations.
-DVT prophylaxis.
-Will follow pending results. Patient will need follow-up with Neurology as an outpatient, may see the 3RD GRADE TEACHER or one of the physicians.
Subjective/Objective
Subjective Data
Date of Service: July 05, 2023
No acute events overnight. Patient is pleasantly confused. She offers no insight to why she is in the hospital. She endorses a frontal headache. She denies any dizziness, vision changes, speech/swallow difficulty, numbness, weakness, nausea, chest
pain, palpitations, and shortness of breath.
Objective Data
Vital Signs
Temp Pulse Resp BP Pulse Ox
98.9 F 86 20 105/66 94
07/05/23 04:48 07/05/23 04:48 07/05/23 04:48 07/05/23 04:48 07/05/23 04:48
Lab Results
07/03/23 06:49
07/03/23 06:49
Sodium 137 mmol/L (135-145) 07/03/23 06:49
Potassium 4.2 mmol/L (3.5-5.1) 07/03/23 06:49
BUN 11 mg/dl (7-17) 07/03/23 06:49
Glucose 83 mg/dl (70-99) 07/03/23 06:49
Calcium 9.6 mg/dl (8.4-10.2) 07/03/23 06:49
LDL Cholesterol, Calc 86 mg/dl 07/03/23 06:49
Patient Allergies
Iodinated Contrast Media Allergy (Verified 07/02/23 13:31)
Unknown
LDL Level: >70, statin ordered
Review of Systems
-
History Source: Patient
EENT: Negative Blurry Vision, Decreased Vision or Swallowing Difficulty
Respiratory: Negative Cough or Trouble Breathing
Cardiac: Negative Chest Pain or Palpitations
Abdomen/GI: Negative Nausea
Genitourinary: Negative Dysuria
Neuro: Headache; Negative Dizzy, Weakness, Numbness, Ataxia or Speech Problem
Physical Exam
-
General: No Apparent Distress
Eyes: No Ptosis and PERRLA
HEENT: Normocephalic and Atraumatic
Neck: No Bruits Bilaterally and Full Range of Motion
Respiratory: No Dyspnea
GI: Non-distended
Extremities: No Clubbing, No Cyanosis and No Edema
Psych: Confused
Extended Neurological Exam
Mood & Affect: Mood Unremarkable and Affect Unremarkable
Attention Span & Concentration: Awake, Alert and Interactive
Memory: Reduced (Oriented to self and hospital, not month/year/situation.)
Tremor: Hand Tremor Absent and Head Tremor Absent
Involuntary Movement: None
Speech: Quality Unremarkable, Quantity Unremarkable and Rate of Production Unremarkable
Cranial Nerve II: Left Eye: Pupillary Reactivity Unremarkable, Pupillary Size Unremarkable and Visual Munoz Intact
Cranial Nerve II: Right Eye: Pupillary Reactivity Unremarkable, Pupillary Size Unremarkable and Visual Munoz Intact
Cranial Nerves III, IV, : Extraocular Movement: Extraocular Movement Full in all Directions
Cranial Nerve VII: Facial Symmetry: Normal Facial Symmetry
Cranial Nerve VIII: Hearing: Unremarkable Hearing to Normal Conversational Volume
Cranial Nerves IX, X: Palate Movement: Palate Elevation Symmetric
Cranial Nerve XI: Shoulder Shrug: Unremarkable
Cranial Nerve XII: Tongue Protusion: Midline
Muscle Strength, Overall: Full Throughout
Muscle Bulk & Tone: Bulk Unremarkable and Tone Unremarkable
Pronator Drift: No Drift in Upper Extremities and No Drift in Lower Extremities
Touch Sensation: Double Simultaneous Stimulation Unremarkable
Coordination: [id number] Testing Unremarkable
Babinski Sign: Absent Bilaterally
Modified Loup Score (MRS)
-
Modified Loup Scale (mRS): No significant disability. Able to carry out usual activities.
Score: 1
Data Reviewed
-
CT Head: Report Reviewed and Image Reviewed
MRI Head: Pending
Echocardiogram: Report Reviewed
Reviewed with: Physician and Patient
Medications
-
Active Medications
Generic Name Dose Route Start Last Admin
Trade Name Freq PRN Reason Stop Dose Admin
Acetaminophen 650 mg 07/02/23 19:15
Acetaminophen 650 Mg Rectal Suppository RECTAL 07/30/23 19:14
Q4HPRN PRN
SHERMAN, mild pain, or temp >100.4F
Acetaminophen 650 mg 07/02/23 19:15
Acetaminophen 325 Mg Tablet PO 07/30/23 19:14
Q4HPRN PRN
SHERMAN, mild pain, or temp >100.4F
Aspirin 81 mg 07/03/23 08:00 07/04/23 08:50
Aspirin 81 Mg Chewable Tablet PO 07/31/23 07:59 81 mg
DAILY JENNIFER Administration
Atorvastatin Calcium 80 mg 04/21/24 18:00 07/04/23 18:11
Atorvastatin (Lipitor) 80 Mg Tablet PO 07/31/23 17:59 80 mg
QPM JENNIFER Administration
Ceftriaxone Sodium 1,000 mg 07/04/23 18:00 07/04/23 18:11
Ceftriaxone 1000 Mg / 10 Ml Vial IV 1,000 mg
Q24H JENNIFER Administration
Clopidogrel Bisulfate 75 mg 07/03/23 08:00 07/04/23 08:50
Clopidogrel 75 Mg Tablet PO 07/31/23 07:59 75 mg
DAILY JENNIFER Administration
Escitalopram Oxalate 5 mg 07/02/23 22:00 07/04/23 23:25
Escitalopram 5 Mg Tablet PO 07/30/23 21:59 5 mg
HS JENNIFER Administration
Sodium Chloride 0 flush 07/02/23 20:00
Sodium Chloride 0.9% (Flush) Syringe IV 07/30/23 19:59
PER PROTOCOL JENNIFER
Sterile Water 10 ml 07/04/23 18:00 07/04/23 18:11
Sterile Water For Injection 10 Ml Vial IV 08/01/23 17:59 10 ml
Q24H JENNIFER Administration
Home Medications
�Medication �Instructions �Recorded
atorvastatin 40 mg tablet 40 mg PO DAILY High Cholesterol 07/02/23
escitalopram oxalate 5 mg tablet 5 mg PO DAILY Mental Health/Anxiety 07/02/23
NIH Stroke Score
Subsequent NIH Scale
Date of Subsequent NIH Scale: 07/05/23
Time of Subsequent NIH Scale: 08:30
NIH Stroke Score
Level of Consciousness: 0 - Alert
LOC Questions: 1-Answers one correctly
LOC Commands: 0-Performs both correctly
Best Horizontal Gaze: 0-Normal
Visual Munoz: 0=Normal, no visual loss
Facial Palsy: 0=Normal, symmetrical
Motor - Right Arm: 0=No drift 10 seconds
Motor - Left Arm: 0=No drift 10 seconds
Motor - Right Le-No drift 5 seconds
Motor - Left Le-No drift 5 seconds
Limb Ataxia: 0-Absent
Sensation: 0-Normal
Best Language: 0-No aphasia
Dysarthria: 0-Normal
Extinction and Inattention: 0-No abnormality
Total Score:: 1
Modified Loup (mRS) Score
Modified Juni Scale (mRS): No significant disability. Able to carry out usual activities.
Score: 1

Documented by User: Ethan Estevse MD 07/05/23 11:21
Modified Loup Score (MRS)
-
Score: 1
NIH Stroke Score
NIH Stroke Score
Total Score:: 1
Modified Loup (mRS) Score
Score: 1
[2023-07-05 08:06] VITALS: BP 118/76
[2023-07-05] MEDS: LOW STRENGTH ASPIRIN 81 MG PO (08:59)
[2023-07-05] MEDS: PLAVIX 75 MG PO (08:59)
[2023-07-05] MEDS: ATIVAN 0.5 MG PO (10:02)
[2023-07-05 11:58] VITALS: BP 110/56
--- NOTE | 2023-07-05 14:44 | W.PN.HOSP.TC ---
Addendum entered and electronically signed by Kvng Wilson MD 07/05/23 16:30:
time spent over 30 min
Addendum entered and electronically signed by Kvng Wilson MD 07/05/23 16:29:
transport corps officer placed. Patient to follow-up with PCP for the monitor results per D/W Cards
Original Note:
Today's Communication/Plan
-
Discharge
Assessment / Plan
Assessment / Plan
HPI: 82-year-old with past medical history for coronary artery disease, hyperlipidemia, dementia presented with increasing confusion since Tuesday night. She was taken to her PCP, and her urinalysis was apparently negative. Per family has also
noted some expressive and receptive aphasia.
Of note, she fell a couple of weeks ago and displaced her wrist. She currently has a cast on her left forearm.
In the ED, her head CT noted a 4.5 cm subacute versus old nonhemorrhagic infract in the left temporal lobe, 3 mm acute versus old lateral infract in the right thalamus.
Patient received a dose of aspirin and Plavix in ER.
CVS: S1-S2 normal
Chest: CTA B/L
Abdomen: Soft, NT / Bowel sounds present
Extremities: No edema, left fore arm cast
CLIENT EVALUATOR: Non focal exam
MRI-restricted diffusion in the left upper lobe acute to subacute infarction versus area of encephalitis
A/P:
# Acute Metabolic encephalopathy with some expressive and receptive aphasia likely from subacute infract
Head CT noted 4.5 cm subacute versus old nonhemorrhagic infarct in the left temporal lobe. There is 3 mm acute versus old lacunar infarct in the right thalamus.
MRI noted as above
Echo
Cont Aspirin and Plavix-for 3 weeks and then aspirin alone along with statin.
LDL at 86
A1c at 5.6%
SPL eval recommended regular diet
Neurology following
PT/OT eval noted-Home health
Exam unremarkable, pt able to ambulate
#Abnormal U/A- E. coli -ceftriaxone-will switch to Keflex at discharge
#Left forearm cast for wrist fracture
#Suspect Dementia
#DVT prophylaxis- SCD
#CODE STATUS- Full code
D/W Neuro
Discussed with cardiology for monitor they will place prior to discharge.
Discussed with case management
Discussed with patient's granddaughter and on the phone. I could not reach patient's daughter.
Anticipated Discharge: Today
Subjective/Interval History
-
Date of Service: July 05, 2023
Objective Data
-
Vital Signs:
Vital Signs
Temp Pulse Resp BP Pulse Ox
98.4 F 84 16 110/56 97
07/05/23 11:58 07/05/23 11:58 07/05/23 11:58 07/05/23 11:58 07/05/23 11:58
I&O
07/04/23 07/05/23 07/06/23
06:59 06:59 06:59
Intake Total 800 / 800 1020 / 1020
Output Total 350 / 350
Balance 800 / 800 670 / 670
[2023-07-05 15:36] VITALS: BP 101/56
[2023-07-05 15:56] VITALS: BP 100/61; PULSE 82; O2SAT 96
--- NOTE | 2023-07-05 16:17 | CM ---
Patient is for discharge today to home with daughter and granddaughter and [facility] visiting nurses.
Plan; Home with [facility] visiting nurses.
[place] [phone]
--- NOTE | 2023-07-05 16:29 | W.DS.TRANS ---
Addendum entered and electronically signed by Kvng Wilson MD 07/05/23 18:38:
Dictation- [id number]
Original Note:
DC Summary - [employer]
-
Discharge Instructions:
Discharge Diagnosis/Procedures Stroke, UTI, cognitive dysfunction,CAD, H/O Head
and neck cancer , mild valvular heart disease
Diet As tolerated
Activity As tolerated
Driving Restrictions No driving
Blood Work Cholesterol panel and also liver function tests
in 2-3 months
Other Services VN
Instructions:
Stand-Alone Forms:
Changes to Home Medications: Yes
Discharge Medications:
DC Medications w/original date entered in [facility]
escitalopram oxalate 5 mg tablet 5 mg PO DAILY Mental Health/Anxiety 07/02/23
aspirin 81 mg chewable tablet (Children's Aspirin) 81 mg PO DAILY Blood clot prevention/tx #0 tabs 07/05/23
atorvastatin 80 mg tablet 80 mg PO QPM High cholesterol #30 tabs 07/05/23
cephalexin 500 mg capsule 500 mg PO Q6H Urinary issue #20 caps 07/05/23
clopidogrel 75 mg tablet 75 mg PO DAILY Blood clot prevention/tx #20 tabs 07/05/23
Home Medication Changes
new
atorvastatin 80 mg tablet 80 mg PO QPM High cholesterol #30 tabs 07/05/23
cephalexin 500 mg capsule 500 mg PO Q6H Urinary issue #20 caps 07/05/23
clopidogrel 75 mg tablet 75 mg PO DAILY Blood clot prevention/tx #20 tabs 07/05/23
Pending Results: No
--- NOTE | 2023-07-05 17:49 | PTCARENOTE ---
Maria Eugenia ruby harpooner. Called to daughter and left message for her to call back to [facility] for d/c instructions. call placed to [facility]
== END 2023-07-05 19:02 | disposition home health service (06) | DRG 64 ==
LOC: 4 WEST ACU 17:12
PROVIDERS: Nurse Practitioner Gerontology; Registered Nurse; ADMITTING PHYSICIAN Internal Medicine; ATTENDING PHYSICIAN Hospitalist; CONSULT PHYSICIAN Psychiatry & Neurology Neurology; EMERGENCY PHYSICIAN Emergency Medicine; FAMILY PHYSICIAN Nurse Practitioner Family
DX: I63.9 Cerebral infarction, unspecified (principal); G93.41 Metabolic encephalopathy; N39.0 Urinary tract infection, site not specified; B96.20 Unspecified Escherichia coli [E. coli] as the cause of diseases classified elsewhere; I25.10 Atherosclerotic heart disease of native coronary artery without angina pectoris; R47.01 Aphasia; F03.90 Unspecified dementia, unspecified severity, without behavioral disturbance, psychotic disturbance, mood disturbance, and anxiety; I10 Essential (primary) hypertension; Z85.89 Personal history of malignant neoplasm of other organs and systems; Z79.82 Long term (current) use of aspirin
CPT/HCPCS: 70450; 70551; 80048; 80061; 81003; 81015; 83036; 84443; 84484; 85025; 85027; 87086; 87088; 87186; 92526; 92610; 93005; 93306; 97116; 97161; 97166; 97530; 97535; 99285

== ENCOUNTER 2023-09-27 19:50 | Emergency (ER) | payer MEDICARE, OTHER, SELFPAY ==
[2023-09-27 19:51] VITALS: BP 125/82; BMI 22.9
[2023-09-27 20:00] VITALS: BP 112/74
[2023-09-27 20:15] LABS: % Basophils 0.7 % (0-2); % Eosinophils 1.8 % (0-6); % Immature Granulocytes 0.2 % (0-0.5); % Lymphocytes 48.3 % (20.5-51.1); % Monocytes 4.5 % (1.7-9.3); % Neutrophils 44.5 % (42.2-75.2); Absolute Basophils 0.1 10^3/uL (0-0.2); Absolute Eosinophils 0.2 10^3/uL (0-0.7); Absolute Lymphocytes 5.8 10^3/uL (1.2-3.4); Absolute Monocytes 0.5 10^3/uL (0.1-0.6); Absolute Neutrophils 5.3 10^3/uL (1.4-6.5); Hematocrit 37.9 % (37.0-47.0); Hemoglobin 12.8 g/dL (12.0-16.0); Mean Corp Hgb Conc. 33.8 g/dL (33.0-37.0); Mean Corpuscular Volume 85.7 fL (81.0-99.0); Mean Platelet Volume 10.4 fL (7.4-10.4); Nucleated Red Blood Cells % 0 %; Platelet Count 314 10^3/uL (130-400); Red Blood Cell Count 4.42 10^6/uL (4.20-5.40); Red Cell Dist. Width 13.4 % (11.5-14.5); White Blood Cell Count 11.9 10^3/uL (4.8-10.8)
[2023-09-27 20:27] LABS: ALT (SGPT) 14 U/L (0-35); AST (SGOT) 21 U/L (14-36); Albumin 3.8 g/dl (3.5-5.0); Alkaline Phosphatase 102 U/L (38-126); Blood Urea Nitrogen 15 mg/dl (7-17); Calcium 9.4 mg/dl (8.4-10.2); Carbon Dioxide 23 mmol/L (22-30); Chloride 105 mmol/L (98-107); Estimated Creatinine Clearance 55 ml/min; Glucose 100 mg/dl (70-99); Potassium 5.4 mmol/L (3.5-5.1); Sodium 137 mmol/L (135-145); Total Bilirubin 0.8 mg/dl (0.2-1.3); Total Protein 6.3 g/dl (6.3-8.2); eGFR > 60.00
[2023-09-27] MEDS: NSS 500 IV (20:47)
[2023-09-27 20:48] LABS: Urine Albumin Negative (Neg - Trace); Urine Bilirubin Negative (Negative); Urine Character Clear (Clear); Urine Color Yellow; Urine Glucose Negative (Negative); Urine Ketone 1+ (Negative); Urine Leukocyte 2+ (Negative); Urine Nitrite Positive (Negative); Urine Occult Blood Negative (Negative); Urine Urobilinogen Negative (Neg - 1+)
[2023-09-27 20:54] LABS: Urine Red Blood Cell 0-2 /HPF (0-2); Urine Squamous Cell 0-2 /LPF (Few)
[2023-09-27 20:55] LABS: Urine Bacteria Many (Negative); Urine White Cell 50-60 /HPF (0-5)
[2023-09-27 20:57] LABS: TSH Reflex To Free T4 3.79 uIU/ml (0.47-4.68)
[2023-09-27 21:00] VITALS: BP 119/67
[2023-09-27 21:13] LABS: Troponin I < 0.012 ng/ml
--- NOTE | 2023-09-27 21:13 | ED.GENMED ---
Addendum entered and electronically signed by Cy Andrew PA-C 10/01/23 06:54:
Urine culture shows greater than 100,000 colony-forming units of E. coli. Patient placed on Keflex. No intervention needed
Original Note:
History of Present Illness
General
Chief Complaint: Heart Rate Problem
Source: patient and family (Granddaughter at bedside)
Exam Limitations: dementia
Time Seen by Provider: 09/27/23 19:55
Nursing documentation reviewed up to this point in time: agreed with
History of Present Illness
History of Present Illness:
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 Her
granddaughter is a new nurse here at [place], after her shift today she went home and patient was napping. Patient woke from her nap around 630 about 10 steps toward the couch and her granddaughter saw her standing they are pale, sweating, short
of breath so she got her stethoscope and found her heart rate to be 160. Her lungs were CTA. The patient did feel palpitations. She denied chest pain however. Granddaughter called the ambulance, EMS came, documented rhythm strip with heart rate
of 183, en route gave her adenosine 6:59 PM and patient converted to normal sinus. She arrived in NSR. Patient denies chest pain.
Patient does states she has a headache pointing to her forehead
Past History
Past History
ED Past Medical History: Arrthythmia (a fib), CVA (07/2023) and Psychiatric (dementia)
Social History
Tobacco: Non-smoker
Alcohol: None
Personal:
Living: with family
Review of Systems
Review of Systems
Allergies reviewed?: Yes
All Other Systems: ROS reviewed and negative except as documented in HPI and ROS
Constitutional: Denies fever
Respiratory: Denies trouble breathing
Cardiac: Reports diaphoresis and palpitations; Denies chest pain or syncope
ABD/GI: Denies abdominal pain, nausea, vomiting or diarrhea
: Denies dysuria, frequency, difficulty voiding or urgency
Musculoskeletal: Denies edema
Skin: Reports no symptoms
Neurological: Reports headache (frontal, mild) and other (a little more confused than normal); Denies dizzy, weakness or numbness
Phy Exam
Physical Exam
Physical Exam:
GENERAL: No acute distress. A&Ox2.
CONSTITUTIONAL: Afebrile.
EYES: PERRL, conjunctivae normal
ENMT: moist mucus membranes, Pharynx nl
RESPIRATORY: Regular respirations, nonlabored, lungs clear.
CARDIOVASCULAR: Regular rate and rhythm, no murmurs, no rubs.
GI: Soft, nontender, normal BS
MUSCULOSKELETAL: Moves with ease. Well perfused.
SKIN: Warm, dry, pink
PSYCH: Normal mood and affect. Well kept, interactive and appropriate
NEUROLOGIC: Awake, alert and confused at times. No focal neurological deficits
Course
Orders/Labs/Results
Orders:
Orders
09/27/23 20:02
Electrocardiogram (*1) Urgent
Reason for Study: Tachycardia
EKG- Treatment ONCE
09/27/23 20:07
Complete Blood Count/With Diff Urgent
Comprehensive Metabolic Panel Urgent
TSH Reflex To Free T4 Urgent
09/27/23 20:26
0.9% Sodium Chloride 500 ml [Nss] 500 ml IV BOLUS
CR Chest - 2 Views Urgent
Comment:
Reason For Exam: episode SVT
09/27/23 20:31
Troponin I Urgent
09/27/23 20:38
Urinalysis Reflex To Culture Urgent
Date Specimen was Collected: 09/27/23
Time Specimen was Collected: 20:27
Urine Microscopic Reflex Cult Urgent
Urine Culture Urgent
KEON Source: U
Specimen Description:
Date Specimen was Collected: 09/27/23
Time Specimen was Collected: 20:27
09/27/23 21:21
CT Head W/o Iv Contrast Urgent
Comment:
Reason For Exam: increase confusion on Eliquis
09/27/23 22:05
Cephalexin Monohydrate [Keflex] 500 mg PO NOW STA
Abnormal Lab Results
09/27/23 09/27/23
20:07 20:38
WBC 11.9 H 10^3/uL
(4.8-10.8)
Absolute Lymphs (auto) 5.8 H 10^3/uL
(1.2-3.4)
Potassium 5.4 H mmol/L
(3.5-5.1)
Glucose 100 H mg/dl
(70-99)
Urine Ketones 1+ A
(Negative)
Urine Nitrite (Reflex) Positive A
(Negative)
Leukocyte Esterase Rfl 2+ A
(Negative)
Urine WBC (Reflex) 50-60 A /HPF
(0-5)
Urine Bacteria (Reflex) Many A
(Negative)
09/27/23 20:07
09/27/23 20:07
Vital Signs
Initial and Last Documented VS:
Initial Vital Signs
Temp Pulse Resp BP Pulse Ox
97.4 F 83 28 125/82 93
09/27/23 19:51 09/27/23 19:51 09/27/23 19:51 09/27/23 19:51 09/27/23 19:51
Last Documented Vital Signs
Temp Pulse Resp BP Pulse Ox
97.4 F 74 20 128/96 92
09/27/23 19:51 09/27/23 22:15 09/27/23 22:15 09/27/23 22:00 09/27/23 22:15
MDM/Problems Addressed
Differential Diagnosis Includes:
SVT, IA, UTI
MDM/Problems Addressed:
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 Her
granddaughter is a new nurse here at [place], after her shift today she went home and patient was napping. Patient woke from her nap around 630 about 10 steps toward the couch and her granddaughter saw her standing they are pale, sweating, short
of breath so she got her stethoscope and found her heart rate to be 160. Her lungs were CTA. The patient did feel palpitations. She denied chest pain however. Granddaughter called the ambulance, EMS came, documented rhythm strip with heart rate
of 183, en route gave her adenosine 6:59 PM and patient converted to normal sinus. She arrived in NSR. Patient denies chest pain.
Patient does states she has a headache pointing to her forehead.
Granddaughter states pt has been saying 'nonsensical things.' Like 'where we get my toes from?'
Afebrile
EKG: NSR HR 78
CBC with no clinically significant abnormality
CMP with no clinically significant abnormality
Chest x-ray: NAD
Head CT: No acute abnormality
TSH normal
UA: Shows infection
No further tachycardia, no indication to treat at this time, will f/u with Dr. Rivas Cardiology tomorrow
Plan: Treat for UTI
UTI in the past has been pansensitive, Rx for Keflex 500 mg twice daily x 7 days sent to her pharmacy
*Critical Care Note
Total Time (30-74mins, 75-104mins- exclusive of procedures): Not Applicable
ED Attending Note
-
Portions of this chart may have been created with voice recognition software.� Occasional wrong word or��sound alike� substitutions may have occurred due to the inherent limitations of voice recognition software.
Discharge Plan
Departure
Patient Disposition: Home (Routine Discharge)
Date of Disposition: 09/27/23
Time of Disposition: 22:11
Patient with high blood pressure during this ER visit?: No
Condition: Good
Discharge Problem:
UTI (urinary tract infection), Tachyarrhythmia
Instructions: Urinary Tract Infection, Adult ED, Palpitations ED
Prescriptions:
New
cephalexin 500 mg capsule
500 mg PO BID 7 Days Qty: 14 0RF
No Action
escitalopram oxalate 5 mg tablet
5 mg PO DAILY
Eliquis 2.5 mg Tablet
2.5 mg PO BID
atorvastatin 80 mg tablet
80 mg PO DAILY
Referrals:
Amy Lopez NP [Family Provider] - Follow up in 5-7 days
Maurice Rivas MD [Active] - Tomorrow
Activity Restrictions/Additional Instructions:
As we discussed you have a urinary tract infection. I sent a prescription for Keflex to your pharmacy started tomorrow as you were given a dose here today.
Call Dr. Rivas's office tomorrow and inform them of your visit here today and the episode of rapid heart rate that you had.
Return here immediately for any further episodes of rapid heart rate, chest pain or feeling sicker in any way.
Interventions
Interventions:
*Risk Screen - Suicide Last Done: 09/27/23 19:54
*General Assessment Last Done: 09/27/23 19:54
*Neglect/Abuse Screening Last Done: 09/27/23 19:54
ED- Fall Risk Assessment Last Done: 09/27/23 22:30
*ED COVID-19 Vaccine History Last Done: 09/27/23 19:54
*Nursing Disposition Last Done: 09/27/23 22:30
ED- Cardiac Assessment Last Done: 09/27/23 20:26
ED- Pulmonary Assessment Last Done: 09/27/23 20:26
Discharge Date and Time
Discharge Date/Time: 09/27/23 22:30
Print Language: TAJIK
[2023-09-27 22:00] VITALS: BP 128/96
[2023-09-27] MEDS: KEFLEX 500 MG PO (22:13)
== END 2023-09-27 22:30 | disposition home or self-care (01) ==
LOC: EMR 19:50
PROVIDERS: Registered Nurse; EMERGENCY PHYSICIAN Student in an Organized Health Care Education/Training Program; FAMILY PHYSICIAN Nurse Practitioner Family
DX: N39.0 Urinary tract infection, site not specified (principal); R00.0 Tachycardia, unspecified; F03.90 Unspecified dementia, unspecified severity, without behavioral disturbance, psychotic disturbance, mood disturbance, and anxiety; I10 Essential (primary) hypertension; I48.91 Unspecified atrial fibrillation; Z79.01 Long term (current) use of anticoagulants; Z86.73 Personal history of transient ischemic attack (TIA), and cerebral infarction without residual deficits; Z87.440 Personal history of urinary (tract) infections
CPT/HCPCS: 99284; 96360; 70450; 71046; 80053; 81003; 81015; 84443; 84484; 85025; 87077; 87086; 87186; 93005

== ENCOUNTER 2023-10-03 23:20 | Inpatient (IN) | payer MEDICARE, OTHER, SELFPAY ==
[2023-10-03] VITALS (18 sets, daily range): BP systolic 75–116; BP diastolic 52–72; BMI 23.8
--- NOTE | 2023-10-03 17:46 | ED.GENMED ---
History of Present Illness
General
Chief Complaint: Fall
Time Seen by Provider: 10/03/23 17:40
History of Present Illness
History of Present Illness:
83-year-old female presents to the emergency department for evaluation of right hip pain after a fall. She was noted in round to have rapid heart rates in the 130-140 range however no treatment was given. She does have a distant history of
paroxysmal SVT. The patient also has a prior history of stroke with baseline cognitive deficits and some aphasia thus history is somewhat limited. She is on Eliquis
Past History
Past History
ED Past Medical History: Arrthythmia (a fib), CVA (07/2023) and Psychiatric (dementia)
Social History
Tobacco: Non-smoker
Alcohol: None
Personal:
Living: with family
Review of Systems
Review of Systems
Allergies reviewed?: Yes
All Other Systems: ROS reviewed and negative except as documented in HPI and ROS
Phy Exam
Physical Exam
Physical Exam:
GEN: Well appearing, NAD, WDWN
Eyes: PERRLA, EOMs intact, no scleral icterus
HENT: NCAT, oral mucosa moist
Lungs: CTAB, no wheezes, rales, rhonchi, normal chest wall excursion
Cardiac: Tachycardic, regular
Abdomen: S, NT, ND, NABS, no masses or hepatosplenomegaly
Neuro: Alert, baseline aphasia however understands questions and can answer most questions appropriately, bilateral upper and lower extremity strength is symmetric
MSK: No gross deformity or ecchymosis. Focal tenderness to the right greater trochanter, no obvious deformity, no shortening or limb rotation, no crepitus
Skin: No rashes, petechiae. Normal color, no pallor or jaundice.
Psych: Calm, cooperative, proper hygiene
Course
Orders/Labs/Results
Orders:
Orders
10/03/23 17:34
Electrocardiogram (*1) Urgent
Reason for Study: Tachycardia
EKG- Treatment ONCE
10/03/23 17:46
CT Head W/o Iv Contrast Urgent
Comment:
Reason For Exam: fall on Eliquis
0.9% Sodium Chloride 1000 ml [Nss] 1,000 ml IV BOLUS
Adenosine [Adenocard] 6 mg IV NOW STA
CR Hip - RT w/wo Pel 2-3 Vw* Urgent
Comment:
Reason For Exam: fall
Include a pelvis x-ray?: Yes
10/03/23 17:53
Fentanyl Citrate/Pf [Sublimaze] 100 mcg .ROUTE .STK-MED ONE
10/03/23 17:55
Adenosine [Adenocard] 12 mg .ROUTE .STK-MED ONE
10/03/23 18:04
Complete Blood Count/With Diff Urgent
Comprehensive Metabolic Panel Urgent
10/03/23 19:31
Morphine Sulfate 2 mg IV NOW STA
10/03/23 19:37
CT Pelvis W/o Iv Contrast Urgent
Comment:
Reason For Exam: fall R hip pain, neg XR
10/03/23 20:51
Acetaminophen 1000MG/100Ml [Ofirmev] 1,000 mg in 100 ml IV ONCE
Acetaminophen IV Indication:: ED Narcotic Naive Pt-ONCE
10/03/23 22:50
PODIATRY CONSULT Routine
Consulting Provider: Bren Baldwin I.
Was physician already notified: Yes
Reason for consult: periprosthetic femur fx
10/03/23 23:00
Flush (0.9% Sodium Chloride) [Flush (Nss)] See Dose Instructions IV PER PROTOCOL
10/03/23 23:06
CARDIOLOGY CONSULT Routine
Consulting Provider: Maurice Rivas
Was physician already notified: No
Reason for consult: svt recurrent
10/03/23 23:07
Admit/Transfer Patient As Directed
Co-Sign Provider:
Level of Care: Inpatient admission
Assign to:: Telemetry
Physician / Group: sudhakar magallanes
Diagnosis: mech fall r periprosthetic fx, recurrent svt
Reason for Telemetry: Arrhythmia
Date to Stop Telemetry: 10/06/23
Time to Stop Telemetry: 11:00
Reason for Hospitalization: mech fall r periprosthetic fx, recurrent svt
Expected length of stay greater than two midnights?: Yes
ELOS- Estimated Length of Stay in days: 3
I certify the patient meets the requirements for IP care: Yes
Code Status As Directed
Resuscitation Status: Do not resuscitate
Reached after discussion with pt or family/Healthcare POA: Yes
Based on pt advanced directive or healthcare POA form: Yes
Decision communicated with: per pt
Consult Notification Routine
Specialty to Notify: Cardiology
10/03/23 23:08
DNR Bracelet Application ONCE
10/06/23 11:00
DC Protocol for Telemetry ONCE
Abnormal Lab Results
10/03/23
18:04
WBC 11.3 H 10^3/uL
(4.8-10.8)
RBC 4.11 L 10^6/uL
(4.20-5.40)
Hgb 11.8 L g/dL
(12.0-16.0)
Hct 35.0 L %
(37.0-47.0)
Absolute Lymphs (auto) 4.0 H 10^3/uL
(1.2-3.4)
Absolute Monos (auto) 0.7 H 10^3/uL
(0.1-0.6)
Chloride 110 H mmol/L
(98-107)
Glucose 100 H mg/dl
(70-99)
Total Protein 5.8 L g/dl
(6.3-8.2)
Albumin 3.3 L g/dl
(3.5-5.0)
10/03/23 18:04
10/03/23 18:04
Vital Signs
Initial and Last Documented VS:
Initial Vital Signs
Pulse Resp Pulse Ox
135 20 98
10/03/23 17:34 10/03/23 17:34 10/03/23 17:34
Last Documented Vital Signs
Temp Pulse Resp BP Pulse Ox
97.4 F 75 20 107/68 95
10/03/23 17:36 10/03/23 23:00 10/03/23 23:00 10/03/23 23:00 10/03/23 23:00
MDM/Problems Addressed
MDM/Problems Addressed:
Patient identified to have a nondisplaced periprosthetic proximal femur fracture however hip hardware is stable. Patient was noted on arrival to have tachycardia and hypotension, EKG suggestive of SVT. Was given 6 mg of adenosine with termination
of the arrhythmia and congregation of normal sinus rhythm. She remained clinically stable thereafter and blood pressure rapidly improved. Further workup determined that head CT was negative but hip imaging reveals a minor periprosthetic fracture.
I had a lengthy discussion via [employer] with both on-call orthopedist through [facility] as well as [facility]. Initially the family the patient had thought the surgery was performed at [facility] after this discussion neither orthopedist
on-call was willing to consult on the patient and recommended transfer to a tertiary care center. I then received a call from the patient's granddaughter who informed that the surgery was performed by an independent orthopedist Dr. Johnson in 2014
however it appears that Dr. Johnson is now . Surgery was performed at [facility] however the orthopedist was not affiliated with the orthopedic group at [facility]. Thus we will admit the patient to this hospital for further evaluation
and management
*Critical Care Note
Total Time (30-74mins, 75-104mins- exclusive of procedures): Not Applicable
Update Note
Update Note:
1759: 6mg adenosine given with termination of SVT and congregation of sinus rhythm. BP improved
2144: Case d/w Orthopedics, both Fabrizio Flores and Leeann. Both acid conditioning worker physicians declining to provide consultation services. Per Fabrizio Flores, should be deferred to Leeann; per Leeann, was not done here thus not willing to consult. Fabrizio Flores acid conditioning worker
advising transfer to tertiary care facility.
2223: Received phone call from pt's granddaughter Reanna. Surgery was done in [address] Johnson, performed at [facility]. Dr Johnson is unfortunately now . Will admit to hospitalist service
2246: Updated Dr Baldwin, acid conditioning worker for Ortho. Agreeable to consultation given the circumstances. Recommends [facility] until consult. alterations workroom clerk contacted [facility] for operative note from 2014, however our request was denied by the acid conditioning worker nursing magnetic prospecting supervisor.
ED Attending Note
-
Portions of this chart may have been created with voice recognition software.� Occasional wrong word or��sound alike� substitutions may have occurred due to the inherent limitations of voice recognition software.
Discharge Plan
Departure
Patient Disposition: Admit
Date of Disposition: 10/03/23
Time of Disposition: 22:31
Presentation/result/management discussed w/ accepting MD/DO: Hospitalist
Discharge Problem:
Periprosthetic fracture of proximal end of femur, Paroxysmal supraventricular tachycardia
Prescriptions:
No Action
escitalopram oxalate 5 mg tablet
5 mg PO DAILY
Eliquis 2.5 mg Tablet
2.5 mg PO BID
atorvastatin 80 mg tablet
80 mg PO DAILY
cephalexin 500 mg capsule
500 mg PO BID 7 Days Qty: 14 0RF
Referrals:
Amy Lopez NP [Family Provider] -
Discharge Date and Time
Print Language: BARBADIAN
[2023-10-03] MEDS: ADENOCARD 6 MG IV (17:56)
[2023-10-03] MEDS: NSS 1000 IV (17:56)
[2023-10-03 18:13] LABS: % Basophils 0.5 % (0-2); % Eosinophils 1.6 % (0-6); % Immature Granulocytes 0.3 % (0-0.5); % Lymphocytes 35.6 % (20.5-51.1); % Monocytes 6.2 % (1.7-9.3); % Neutrophils 55.8 % (42.2-75.2); Absolute Basophils 0.1 10^3/uL (0-0.2); Absolute Eosinophils 0.2 10^3/uL (0-0.7); Absolute Monocytes 0.7 10^3/uL (0.1-0.6); Absolute Neutrophils 6.3 10^3/uL (1.4-6.5); Hemoglobin 11.8 g/dL (12.0-16.0); Mean Corp Hgb Conc. 33.7 g/dL (33.0-37.0); Mean Corpuscular Hgb 28.7 pg (27.0-31.0); Mean Corpuscular Volume 85.2 fL (81.0-99.0); Mean Platelet Volume 10.4 fL (7.4-10.4); Nucleated Red Blood Cells % 0 %; Platelet Count 257 10^3/uL (130-400); Red Blood Cell Count 4.11 10^6/uL (4.20-5.40); Red Cell Dist. Width 13.3 % (11.5-14.5); White Blood Cell Count 11.3 10^3/uL (4.8-10.8)
[2023-10-03 18:31] LABS: ALT (SGPT) 14 U/L (0-35); AST (SGOT) 25 U/L (14-36); Albumin 3.3 g/dl (3.5-5.0); Alkaline Phosphatase 75 U/L (38-126); Blood Urea Nitrogen 15 mg/dl (7-17); Calcium 8.5 mg/dl (8.4-10.2); Carbon Dioxide 22 mmol/L (22-30); Chloride 110 mmol/L (98-107); Estimated Creatinine Clearance 55 ml/min; Glucose 100 mg/dl (70-99); Potassium 4.1 mmol/L (3.5-5.1); Sodium 137 mmol/L (135-145); Total Bilirubin 1.1 mg/dl (0.2-1.3); Total Protein 5.8 g/dl (6.3-8.2); eGFR > 60.00
[2023-10-03] MEDS: MORPHINE SULFATE 2 MG IV (19:41)
[2023-10-03] MEDS: OFIRMEV 100 IV (20:59)
--- NOTE | 2023-10-03 22:36 | HPS.HSE ---
Family Physician
-
Family Physician: Amy Lopez
Chief Complaint
-
Fall, right hip pain
History of Present Illness
83-year-old female from home by EMS with a fall. She is complaining of right hip pain on ER she was noted to be in SVT and hypotensive in the ER. She was given 6 mg of adenosine and converted to sinus rhythm. The patient has history of a prior
prostatic fracture repair [address] Johnson a orthopedic surgeon at [facility]. Today she was noted to have a periprosthetic fracture. She denies headache, neck pain, fever, cough, shortness of breath, chest pain,
abdominal pain, nausea, vomiting, diarrhea, urinary symptoms. She was seen in the ER on 09/27/2023 for E. coli UTI and placed on 7-day course of Keflex to finish today 10/03/2023. She denies current urinary symptoms she also had reported episode of
SVT on 09/27/2023 with heart rate 183 treated en route by EMS with adenosine converted to normal sinus rhythm
She has past medical history A-fib, CVA 08/01/2023, dementia mild, chronic ambulatory dysfunction uses walker at baseline, anxiety
Medical History
Past Medical History
Past Medical History: Reports Other
Additional Past Medical History:
ecoli uti september 27 2023
Coronary artery disease
Dementia
throat ca
A-fib,
CVA 08/01/2023
former smoker
Past Surgical History: Reports Other
Additional Past Surgical History:
Coronary artery stented
part of tongue removed
Cholecystectomy
Appendectomy
Tonsillectomy
Social History
Tobacco: Former Smoker (Patient reports quit many years ago)
Alcohol: None
Drug: None
Living: With Family (Lives with her daughter Naa)
Family History
Family History: Not pertinent
Allergies / Home Medications
Allergies reflects when Allergies were last updated in [address].
Home Medications with original date entered in [address]
Allergy/Medication List:
Allergies
Allergy/AdvReac Type Severity Reaction Status Date / Time
Iodinated Contrast Media Allergy Unknown Verified 10/03/23 17:26
Home Medications
escitalopram oxalate 5 mg tablet 5 mg PO DAILY Mental Health/Anxiety 07/02/23
apixaban 2.5 mg tablet (Eliquis) 2.5 mg PO BID 09/27/23
atorvastatin 80 mg tablet 80 mg PO DAILY High cholesterol 09/27/23
cephalexin 500 mg capsule 500 mg PO BID 7 days #14 caps 09/27/23
Review of Systems
-
History Source: Patient
A 12 point ROS was completed and negative except as noted: Yes
Constitutional: Denies Fever or Chills
EENT: Denies Sore Throat or Runny Nose
Respiratory: Denies Cough or Trouble Breathing
Cardiac: Reports Palpitations; Denies Chest Pain, Diaphoresis or Syncope
Abdomen/GI: Denies Abdominal Pain, Nausea, Vomiting, Diarrhea, Constipated or Bloody Stools
: Denies Dysuria, Frequency, Flank Pain or Incontinence
Musculoskeletal: Reports Joint Pain (Right hip); Denies Edema
Skin: Denies Itching or Rash
Neurological: Denies Dizzy or Headache
Endocrine: Reports No Symptoms
Hematologic/Lymphatic: Reports No Symptoms
Psych: Reports Calm
Physical Exam
Vital Signs
Vital Signs
Temp Pulse Resp BP Pulse Ox
97.4 F 79 13 108/63 95
10/03/23 17:36 10/03/23 22:00 10/03/23 22:00 10/03/23 22:00 10/03/23 22:00
Physical Exam
HEENT: NormoCephalic, Atraumatic, PERRLA and Neck Nontender
Respiratory: Clear; No Wheezes, Rales or Rhonchi
Cardiac: S1/S2 and Regular Rhythm; No Murmur, Rub, Gallop or Peripheral Edema
Breast: Deferred by me
GI: Soft, Non Tender, Non Distended, Normal Bowel Sounds and No Hepatosplenomegaly
Rectal: Deferred by Provider
Genito-urinary: Deferred by me
Musculoskeletal: No Clubbing, No Cyanosis, No Edema and Other (Right hip tenderness secondary to periprosthetic fracture, sensation intact, +2 dorsal pedal pulse)
Skin: Warm and Dry; No Rash
Neuro: Awake, Alert, Oriented (To name, hospital but not year or president and some of medical history) and No Sensory Deficits; No Slurred Speech, Facial Droop or Tremors
Psych: Calm
Laboratory Results
-
10/03/23 18:04
10/03/23 18:04
Laboratory Results
Total Bilirubin 1.1 mg/dl (0.2-1.3) 10/03/23 18:04
AST 25 U/L (14-36) 10/03/23 18:04
ALT 14 U/L (0-35) 10/03/23 18:04
Alkaline Phosphatase 75 U/L (38-126) 10/03/23 18:04
Data Reviewed
-
Diagnostic Radiology: Report Reviewed by me
Lab Data: Labs Reviewed by me
Impression/Plan
-
Impression/plan:
Admit to telemetry
#Mechanical fall with right periprosthetic fracture
Hx chronic ambulatory dysfunction-uses walker at baseline
-Consult [facility] Dr. Chantal Marin aware
-Patient's prior orthopedic surgeon is Dr. Johnson from [facility]
-Tylenol, morphine, Zofran as needed
-Nonweightbearing right leg(patient uses walker at baseline)
-PT/OT/case management
Pelvis CT: Periprosthetic fracture of the right proximal femur at the level of the greater trochanter without displacement
CT head: Moderate age-related atrophy. Stable chronic infarcts of the left temporal lobe and left posterior parietal lobe. Chronic lacunar infarcts of the right thalamus and left external capsule
#SVT Symptomatic- Resolved -recurrent episode
-Treated with adenosine 6 mg IV
Patient was treated also on 09/27/2023 with IV adenosine by EMS converted to NSR
-Consult cardiology
-Check 2D echo
-TSH with free T4 reflex
EKG SVT 140 bpm
#Recent E. coli UTI 09/27/2023 to finish Keflex 10/03/2023
Patient denies current urine symptoms
#Hx A-fib
-Continue Eliquis 2.5 mg twice daily
#Cognitive impairment question dementia-likely vascular due to history of strokes
Consult OT for Bcat screening
#CVA 08/01/2023
-Continue EMBEDDED HARDWARE ENGINEER atorvastatin 80 mg daily, Eliquis 2.5 mg twice daily
#Anxiety
-Continue Lexapro 5 mg daily
DVT prophylaxis
Continue EMBEDDED HARDWARE ENGINEER Eliquis 2.5 mg twice daily
DNR per patient
--- NOTE | 2023-10-03 23:08 | W.PN.UPDATE ---
Update Note
Progress Note Update
This note serves as an addendum to the H&P by enterprise solutions architect NICHOLAS Iliana MARTINEZ,
HPI
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
Noted tachycardia at ER
Tachycardia: On arrival HR 140s and hypotensive. HX SVT
- EKG c/w SVT
- IV adenosine 6 mg and converted to NS at ER
Fall ECONOMICS TEACHER
- denied head injury
- denied LoC
- dened SHERMAN
- sustained Rt Hip pain nd unable to wt bear
PMHX
CAD
Dementia vs MCI suspect vascular
HX CVA
Throat ca
HX chr ambulatory dysfunction ; use waker
PSHX
CAD with stented
H N CA s/p tooungue resection ? partial
SHX:
Non-smoker
Alcohol: None
Personal:
Living: with family
Reviewed VS: Afebrile BP 85/65 --> 100s/60s HR 80
PE
Gen: NAD ,conversant , appropriate answers
HEENT: atraumatic
Neck: supple
Lungs: CTA
Cor: S1 S2 RRR
Abdomen: Soft, Non tender. Non Distended . Normal Bowel Sounds
PANEL BUILDER: AO x 3 and Nonfocal/grossly intact
MS: Focal tenderness to the right greater trochanter, no obvious deformity, no shortening or limb rotation, no crepitus
Psych: Calm, nl affect
Data
WCC 11.3
Hgb 11.8
Unremarkable CMP
EKG
SUPRAVENTRICULAR TACHYCARDIA
OTHERWISE NORMAL ECG
WHEN COMPARED WITH ECG OF 27-SEP-2023 20:14,
VENT. RATE HAS INCREASED BY 59 BPM
CR Hip - RT w/wo Pel 2-3 Vw*
- No clear radiographic evidence for complication of the right total hip arthroplasty within the limitations of osseous demineralization.
CT Pelvis W/o Iv Contrast
- Periprosthetic fracture of the right proximal femur at the level of the greater trochanter without displacement.
HCT
- No acute intracranial abnormality. Stable chronic findings, as above.
07/05/23 Brain MRI
- Focal area of abnormal restricted diffusion in the left temporal lobe which also has increased T2 and FLAIR signal with some asymmetric loss of sulcal definition.
Differential considerations of acute to subacute infarction, versus focal area of encephalitis.
Last hospitalist admission: 07/02/23 - 07/05/23 PDx
1. Stroke.
2. Urinary tract infection.
3. Cognitive dysfunction.
4. Coronary artery disease.
5. History of head and neck cancer.
6. Mild valvular heart disease.
ASSESSMENT & PLAN
Pending Rx reconciliation
Prox SVT converted to NSR s/p IV Adenosine 6mg
Mild hypotension
HX SVT HX CAD with stent
- TLM monitor
- ECHO in AM
- DCA card consult
Acute nondisplaced periprosthetic proximal femur Fx however hip hardware is stable.
Acute ambulatory dysfunction due to pain : HX chr ambulatory dysfunction ; use waker
Per Granddaughter Reanna. Rt JORDAN [address] Johnson at [facility] Dr Johnson is unfortunately now .
- Supportive care with PRN Analgesia , BW regime
- Ortho consulted : suggest NWB
HX Cognitive dysfunction suspect vascular origin : MCI vs. Dementia
HX nonhemorrhagic infarct in the left temporal lobe. and old lacunar infarct in the right thalamus in June
Moderate diffuse cortical atrophy with extensive nonspecific white matter changes
- OT consult tp screen for brief cognitive assessment ( short BCAT)
- cont all OP Meds
HLD
HX Depression
- Pending Rx reconciliation
DVT Px: LMWH
Code: DNR
IP TLM
[2023-10-04] VITALS (9 sets, daily range): BP systolic 106–129; BP diastolic 51–70; PULSE 71; O2SAT 96–97; BMI 23.8
--- NOTE | 2023-10-04 01:44 | PTCARENOTE ---
00:30pt rec'vd from ER via stretcher, pt aaox1, oriented to self, pt is pleasant, confused and disoriented to place and time, she is a poor historian, unable to verify meds, and ER contact information. Pt was incontinent of B and B has purewick in
place. Pt oriented to unit, call carrasquillo within reach, bed low position.
[2023-10-04] MEDS: KEFLEX 500 MG PO (01:55)
[2023-10-04] MEDS: MORPHINE SULFATE 2 MG IV ×2 (06:16→19:36)
[2023-10-04 07:29] LABS: Hematocrit 34.2 % (37.0-47.0); Hemoglobin 11.6 g/dL (12.0-16.0); Mean Corp Hgb Conc. 33.9 g/dL (33.0-37.0); Mean Corpuscular Hgb 29.5 pg (27.0-31.0); Mean Platelet Volume 10.8 fL (7.4-10.4); Platelet Count 244 10^3/uL (130-400); Red Blood Cell Count 3.93 10^6/uL (4.20-5.40); Red Cell Dist. Width 13.3 % (11.5-14.5); White Blood Cell Count 15.5 10^3/uL (4.8-10.8)
[2023-10-04 07:36] LABS: ALT (SGPT) 17 U/L (0-35); AST (SGOT) 26 U/L (14-36); Albumin 3.4 g/dl (3.5-5.0); Alkaline Phosphatase 89 U/L (38-126); Blood Urea Nitrogen 15 mg/dl (7-17); Calcium 8.9 mg/dl (8.4-10.2); Carbon Dioxide 22 mmol/L (22-30); Chloride 110 mmol/L (98-107); Estimated Creatinine Clearance 55 ml/min; Glucose 91 mg/dl (70-99); Magnesium 1.7 mg/dl (1.6-2.3); Potassium 3.6 mmol/L (3.5-5.1); Sodium 139 mmol/L (135-145); Total Bilirubin 1.3 mg/dl (0.2-1.3); Total Protein 5.7 g/dl (6.3-8.2); eGFR > 60.00
[2023-10-04 07:51] LABS: TSH Reflex To Free T4 4.12 uIU/ml (0.47-4.68)
--- NOTE | 2023-10-04 07:54 | CON.ORTHO ---
Consultation
-
Date/Time Consultation Requested: 10/03/23
Date/Time Consultation Performed: 10/04/23 @ 7:45am
Requesting Provider: Bharat Juarez
Performing Provider: Kortney Quiroz PA-C/Bren Baldwin DO
Reason for Consultation: right periprosthetic fracture
Consultation - Orthopedics
History
HPI: 83yo female admitted to [facility] following a fall at home. Spoke to daughter via telephone who reports that the patient felt dizzy when she got out of bed and fell. She had pain in the hip and difficulty ambulating. She was brought
to the ER for evaluation. She had xrays and CT pelvis which showed a right periprosthetic fracture. She endorses continued pain in the right hip.
PAST MEDICAL HISTORY: UTI, CAD, dementia, throat cancer, Afib on Eliquis, CVA
PAST SURGICAL HISTORY: Right JORDAN [address] Johnson at [place], left CMN, coronary artery stent, cholecystectomy, appendectomy, tonsillectomy, part of tongue removed
SOCIAL HISTORY: former smoker, denies alcohol, lives with daughter Naa
FAMILY HISTORY: Noncontributory
REVIEW OF SYSTEMS: 12 point review of systems obtained and negative except those mentioned in the HPI
Allergies / Home Medications
Allergy/AdvReac Type Severity Reaction Status Date / Time
Iodinated Contrast Media Allergy Unknown Verified 10/03/23 17:26
�Medication �Instructions �Recorded
escitalopram oxalate 5 mg tablet 5 mg PO DAILY Mental Health/Anxiety 07/02/23
apixaban 2.5 mg tablet (Eliquis) 2.5 mg PO BID Blood Clot 09/27/23
Prevention/Tx
atorvastatin 80 mg tablet 80 mg PO DAILY High cholesterol 09/27/23
cephalexin 500 mg capsule 500 mg PO BID 7 days #14 caps 09/27/23
Vital Signs / Lab Results
Temp Pulse Resp BP Pulse Ox
98.5 F 79 18 125/69 99
10/04/23 07:05 10/04/23 07:05 10/04/23 07:05 10/04/23 07:05 10/04/23 07:05
10/04/23 06:15
10/04/23 06:15
XRAY PELVIS AND RIGHT HIP IMPRESSION:
No clear radiographic evidence for complication of the right total hip arthroplasty within the limitations of osseous demineralization.
CT PELVIS IMPRESSION
Periprosthetic fracture of the right proximal femur at the level of the greater trochanter without displacement.
PHYSICAL EXAM:
General: no acute distress
HEENT: NCAT, sclera anicteric, normal hearing
Heart: No JVD
Lungs: normal work of breathing on room air
MSK: Focused exam of right hip reveals well healed surgical scar. +TTP over the lateral hip and thigh. Decreased ROM secondary to pain. Able to plantarflex and dorsiflex the ankle. NVI distally
Assessment / Plan
ASSESSMENT: right periprosthetic hip fracture at the level of the greater trochanter
PLAN: Unfortunately, Ms. Dinh has sustained a right periprosthetic hip fracture. Images were reviewed with Dr. Castro. The right JORDAN appears stable with plenty of in-growth distal to the fracture. Therefore, this may be managed non-operatively.
Recommend partial weight bearing to the right leg. Ambulate with the assistance of a walker. PT/OT evaluation. Continue with pain management as needed. Discussed treatment plan with daughter. Follow up outpatient in 4 weeks for repeat xrays.
Orthopedics will sign off for now. Please reach out with any questions or concerns.
[2023-10-04] MEDS: LEXAPRO 5 MG PO (07:58)
[2023-10-04] MEDS: LIPITOR 80 MG PO (07:58)
--- NOTE | 2023-10-04 08:23 | W.PN.HOSP.TC ---
Addendum entered and electronically signed by Keaton Palomino MD 10/04/23 09:53:
#LEukocytopsis
With no fever might be 2/2 fracture. CHeck UA and Chest XR
Original Note:
Today's Communication/Plan
-
syncope w/u
hold eliquis until Ortho eval for possible Sx intervention
Assessment / Plan
Assessment / Plan
83yo F with PMHx of CVA, Afib on Eliquis, HTN, dementia, anxiety came after the fall. As per patient she hdoes not remmber it. Found R periprosthetic femoral Fx and NSVT that subsided after adenosine in ED
A/P:
#Syncope most likely 2/2 NSVT
#Afib, unspecified
Echo, telemetry
TSH WNL
Repeat UA and chest XR (was found UTI and completed KEflex 1 week ago)
Cardiology consult
Adenosine PRN
cont rate control
#R periprosthetic femoral Fx
Ortho
hold Eliquis for possible intervention
PT/OT, when ready
#Dementia, unspecified
#Anxiety d/o
cont home meds
DVT ppx hep
DNR/DNI
I have spent at least 56min reviewing chart, test results communication with consultants and direct patient care
Anticipated Discharge: > 48 hours
Subjective/Interval History
-
Date of Service: October 04, 2023
Objective Data
-
Labs:
Laboratory Results
10/04/23
06:15
WBC 15.5 H
Hgb 11.6 L
Hct 34.2 L
Plt Count 244
Sodium 139
Potassium 3.6
Chloride 110 H
Carbon Dioxide 22
BUN 15
Creatinine 0.6
Glucose 91
Calcium 8.9
Total Bilirubin 1.3
AST 26
ALT 17
Alkaline Phosphatase 89
Vital Signs:
Vital Signs
Temp Pulse Resp BP Pulse Ox
98.5 F 79 18 125/69 99
10/04/23 07:05 10/04/23 07:05 10/04/23 07:05 10/04/23 07:05 10/04/23 07:05
I&O
10/03/23 10/04/23 10/05/23
06:59 06:59 06:59
Intake Total 240 / 240
Balance 240 / 240
Review of Systems
-
Unable to obtain full review of systems at this time due to: Dementia
History Source: Patient
All other systems: Reviewed and negative
Physical Exam
-
General: Well Developed and Well Nourished
HEENT: Normocephalic and Atraumatic
Respiratory: Clear to Auscultation
Cardiac: Regular Rhythm; Negative Tachycardic
GI: Soft, Nontender and Nondistended
Genito-urinary: No Costovertebral Tender
Musculoskeletal: No Clubbing, No Cyanosis and No Edema
Neuro: Awake, Alert and Oriented
Psych: Calm
[2023-10-04 10:15] LABS: Segmented Neutrophils 39 % (42-75)
[2023-10-04 10:16] LABS: Absolute Neutrophils -Man Diff 6.5 10^3/uL (1.4-6.5); Acanthocytes 1+; Anisocytosis 1+; Band Neutrophils 3 % (0-3); Hypochromasia 2+; Lymphocytes 55 % (20-51); Monocytes 2 % (2-9); Normal RBC Morphology No; Ovalocytes 1+; Platelets Checked Yes; Polychromasia 1+
[2023-10-04 10:17] LABS: Total Cells Counted 100
--- NOTE | 2023-10-04 10:29 | CON.CAR ---
Addendum entered and electronically signed by Meghan Pierre MD 10/04/23 12:03:
I saw and examined the patient.
The Director Of Intelligence's note was reviewed and I agree with the note.
Comment: Briefly, patient is a 83-year-old female with past medical history of alcohol abuse, dementia, osteoporosis, prior TIA, coronary artery disease status post PCI in 1997, left femur fracture in 2020 with a subsequent fall and left wrist
fracture in 2023, CVA in June 2023, recurrent SVT with recent ED visit on September 27, 2023 for presyncope found to be in a rapid SVT by EMS status post 6 mg of adenosine with self conversion to sinus rhythm. She unfortunately suffered another fall on
October 02 and had complaints of right hip pain with prior history of a hip replacement and was found to have recurrent SVT with associated hypotension and was given 6 mg of adenosine again and converted to sinus rhythm. On CT imaging she is found to
have periprosthetic fracture of the right proximal femur without displacement for which Ortho is also consulted. Cardiology was consulted to help with management of paroxysmal SVT.
.
Vital signs and lab work reviewed. On exam patient is pleasant, oriented x 1-2, regular rate, normal S1 and S2, lungs are clear to auscultation anteriorly, abdomen is soft, nontender, nondistended with active bowel sounds, warm extremities.
Most recent echocardiogram from June 2023 with LVEF of 63% and mild valvular disease.
Telemetry with mostly sinus rhythm.
Recommendations:
1. Initiate low-dose beta-michael and uptitrate as allowed by hemodynamics. Hold Eliquis for now.
2. Depending on plan from orthopedic standpoint, consider sending home on a sales lead generator versus LINQ implantation prior to discharge.
3. Given advanced age without documented atrial fibrillation so far, discussed role of continuing long-term Eliquis after weighing risk and benefits.
Meghan Pierre MD, [facility], [facility]
Original Note:
Consultation
Consultation Request
Date/Time Consultation Performed: 10/04/23
Requesting Provider: Dr. Pearson
Performing Provider: Shavonne Leone PA-C for Dr. Pierre
Reason for Consultation: fall, SVT
Medical History
-
Chief Complaint: fall
History of Present Illness:
Patient is an 83 yo F with PMH of alcohol use, dementia, osteoporosis, depression, history of TIA, CAD status post PCI in 1997 further details unknown, left femur fracture in 2020, fall with left wrist fracture 2023, CVA 06/2023, SVT who had ER visit
09/27/2023 for presyncope and was found to be in SVT by EMS. She received 6 mg of adenosine at that time and converted to sinus rhythm. She was discharged from the ER, and was not seen by cardiology at that time. She presents back on 10/02 due to a
fall and right hip pain. In ER was noted to be hypotensive and in rapid SVT. She was given 6 mg of adenosine and converted to sinus rhythm. She was found by CT imaging to have a periprosthetic fracture of right proximal femur without
displacement. She does not recall details surrounding her fall. She denies current pain or discomfort. She is aware that she has history of SVT, however denies recalling symptoms of palpitations, lightheadedness or dizziness although medical
record states otherwise. She has been in a sinus rhythm since her arrival to the floor. After her admission for stroke 06/2023, she was seen by cardiology as was noted to have SVT by a sales lead generator. She was only able to wear the monitor for 24
hours, however had 3 episodes of SVT for burden of 17.78%. She was started on Eliquis and there was discussion about implantation of Linq monitor. She is not on rate control or rhythm control agents.
PMH:
SVT
Dementia
History of remote TIA 1997, CVA 06/2023
CAD status post PCI 1997, further details unknown
Hyperlipidemia
Osteoporosis
Left femur fracture 2020
Fall with left wrist fracture 2023
History of tongue cancer status postresection
History of alcohol abuse
Remote former smoker
Past Medical History
Past Medical History: Other (in HPI)
Social History
Tobacco: Former Smoker (remote)
Alcohol: Former
Living: With Family (daughter)
Allergies / Home Medications
Allergy/AdvReac Type Severity Reaction Status Date / Time
Iodinated Contrast Media Allergy Unknown Verified 10/03/23 17:26
�Medication �Instructions �Recorded �Confirmed �Type
escitalopram oxalate 5 mg tablet 5 mg PO DAILY Mental Health/Anxiety 07/02/23 10/03/23 History
apixaban 2.5 mg tablet (Eliquis) 2.5 mg PO BID Blood Clot 09/27/23 10/03/23 History
Prevention/Tx
atorvastatin 80 mg tablet 80 mg PO DAILY High cholesterol 09/27/23 10/03/23 History
cephalexin 500 mg capsule 500 mg PO BID 7 days #14 caps 09/27/23 10/03/23 Rx
Review of Systems
-
History Source: Patient
All other systems: Negative unless noted
Physical Exam
Vital Signs
Temp Pulse Resp BP Pulse Ox
98.5 F 79 18 125/69 99
10/04/23 07:05 10/04/23 07:05 10/04/23 07:05 10/04/23 07:05 10/04/23 07:05
Lab Results
10/04/23 06:15
10/04/23 06:15
Physical Exam
General: No Apparent Distress and Comfortable
HEENT: Normocephalic, Anicteric and Moist Mucous Membranes
Respiratory: Clear (anterolaterally) and Non Labored Respirations
Cardiac: S1/S2 and Regular Rhythm
GI: Soft, Non Tender, Non Distended and Normal Bowel Sounds
Musculoskeletal: No Clubbing, No Cyanosis and No Edema
Skin: Warm and Dry
Neuro: Awake, Alert and Oriented (to self)
Impression / Plan
-
Primary Sparmaker: Dr. ISABELLE Rivas
Assessment:
Fall
Right proximal femur periprosthetic fracture
SVT
17.78% burden by 24 hour sales lead generator 06/2023
ER visit for SVT 09/27/23, received adenosine by EMS
received adenosine in ER 10/02
Dementia
History of remote TIA 1997, CVA 06/2023
CAD status post PCI 1997, further details unknown
Hyperlipidemia
Osteoporosis
Left femur fracture 2020
Fall with left wrist fracture 2023
History of tongue cancer status postresection
History of alcohol abuse
Remote former smoker
DNR/DNI code status
ECHO 06/2023: EF 63%, MAC, mild MR, aortic sclerosis, trace AR
Plan:
-Patient presented with fall and found to have right proximal femur periprosthetic fracture, presumably due to SVT, however patient with dementia, so history was limited
-She had SVT in ER resulting in being given 6 mg of adenosine. She has remained in sinus rhythm since that time on review of telemetry
-She is not presently on any rate control or rhythm controlling agents. Her blood pressure is presently stable and heart rate in sinus rhythm adequate. We will start Lopressor 25 mg twice daily with hold parameters and follow
-Recent echo with results as above
-Would consider Linq implant prior to discharge to monitor arrhythmia burden, as may also be helpful to determine long-term anticoagulation necessity (thus far no clear A-fib or a flutter noted, only SVT)
-Eliquis presently on hold. She does not appear to be long-term anticoagulation candidate given recurrent falls, however difficult scenario as also with recent stroke
-Management of right femur fracture per primary service/Ortho
-she is at elevated cardiac risk to proceed with OR, however given urgency/necessity, risk acceptable to proceed
Data Reviewed
-
EKG: Tracing Personally Visualized and interpreted
CT Scan: Report Reviewed by me
Medical Tests (Nuc Med, Echo etc): Report Reviewed by me
Labs: Labs Reviewed by me
Old Records: Reviewed
--- NOTE | 2023-10-04 10:29 | CM ---
Reviewed the chart notes and spoke with the patient at the bedside. Message left on daughter's phone for call back. Per patient, she resides with her daughter in a one story home with two steps to enter. The patient reports using a walker with
ambulation and having a shower chair. The patient has had [facility] in the past, but denies SNF. The patient confirmed her pharmacy of choice is the [address] CM continues to be available to patient/family and is
monitoring medical plan for needs at discharge.
Plan: The patient's discharge plans will depend on the patient's progress.
--- NOTE | 2023-10-04 11:25 | W.PN.UPDATE ---
Update Note
Progress Note Update
Patient seen and examined. Agree with orthopedic PA note. Patient had index surgery right total hip arthroplasty performed at [facility] by Dr. Johnson [address] Johnson is .
Right lower extremity: Positive logroll. Pain with range of motion of hip. Neurovascularly intact.
X-rays and CT scan Right hip and pelvis shows a periprosthetic fracture of right total hip arthroplasty at the level of the trochanter. No dislocation of the prosthesis. Prosthesis is intact.
Periprosthetic fracture right hip at the level of the trochanter
Plan: Patient will follow-up with Dr. Castro for x-rays in 4 weeks. Patient is to be partial weightbearing for 4 weeks. All questions were answered. Patient's x-rays were reviewed by Dr. Castro
[2023-10-04] MEDS: LOPRESSOR 25 MG PO ×2 (13:06→19:35)
[2023-10-04 16:36] LABS: Urine Albumin Negative (Neg - Trace); Urine Bilirubin Negative (Negative); Urine Character Clear (Clear); Urine Color Yellow; Urine Glucose Negative (Negative); Urine Ketone Negative (Negative); Urine Leukocyte 1+ (Negative); Urine Nitrite Negative (Negative); Urine Occult Blood 1+ (Negative); Urine Specific Gravity 1.015 (<1.030); Urine Urobilinogen Negative (Neg - 1+)
[2023-10-04 16:42] LABS: Urine Squamous Cell 0-2 /LPF (Few)
[2023-10-04 16:43] LABS: Urine Calcium Oxalate Crystals Present
[2023-10-04 16:44] LABS: Urine Bacteria Many (Negative)
[2023-10-04] MEDS: STERILE WATER FOR INJECTION 10 ML IV (17:22)
[2023-10-04] MEDS: ROCEPHIN 1000 MG IV (17:22)
[2023-10-04] MEDS: MORPHINE SULFATE 4 MG IV (23:23)
[2023-10-05] VITALS (8 sets, daily range): BP systolic 91–134; BP diastolic 54–68; PULSE 56; O2SAT 95; BMI 24.0
[2023-10-05] MEDS: LIPITOR 80 MG PO (08:41)
[2023-10-05] MEDS: LEXAPRO 5 MG PO (08:41)
[2023-10-05] MEDS: LOPRESSOR 25 MG PO ×2 (08:41→20:54)
[2023-10-05] MEDS: TYLENOL 650 MG PO (09:41)
[2023-10-05 09:43] LABS: % Basophils 0.6 % (0-2); % Immature Granulocytes 0.2 % (0-0.5); % Lymphocytes 43.1 % (20.5-51.1); % Monocytes 6.7 % (1.7-9.3); % Neutrophils 47.4 % (42.2-75.2); Absolute Basophils 0.1 10^3/uL (0-0.2); Absolute Eosinophils 0.2 10^3/uL (0-0.7); Absolute Lymphocytes 4.5 10^3/uL (1.2-3.4); Absolute Monocytes 0.7 10^3/uL (0.1-0.6); Hematocrit 35.3 % (37.0-47.0); Hemoglobin 11.9 g/dL (12.0-16.0); Mean Corp Hgb Conc. 33.7 g/dL (33.0-37.0); Mean Corpuscular Hgb 29.1 pg (27.0-31.0); Mean Corpuscular Volume 86.3 fL (81.0-99.0); Mean Platelet Volume 10.8 fL (7.4-10.4); Nucleated Red Blood Cells % 0 %; Platelet Count 204 10^3/uL (130-400); Red Blood Cell Count 4.09 10^6/uL (4.20-5.40); Red Cell Dist. Width 13.4 % (11.5-14.5); White Blood Cell Count 10.5 10^3/uL (4.8-10.8)
[2023-10-05 10:29] LABS: ALT (SGPT) 51 U/L (0-35); AST (SGOT) 69 U/L (14-36); Albumin 3.6 g/dl (3.5-5.0); Alkaline Phosphatase 121 U/L (38-126); Blood Urea Nitrogen 11 mg/dl (7-17); Calcium 8.8 mg/dl (8.4-10.2); Carbon Dioxide 24 mmol/L (22-30); Chloride 104 mmol/L (98-107); Estimated Creatinine Clearance 55 ml/min; Glucose 79 mg/dl (70-99); Magnesium 1.8 mg/dl (1.6-2.3); Potassium 3.7 mmol/L (3.5-5.1); Sodium 137 mmol/L (135-145); Total Bilirubin 1.5 mg/dl (0.2-1.3); Total Protein 5.9 g/dl (6.3-8.2); eGFR > 60.00
--- NOTE | 2023-10-05 10:30 | W.PN.HOSP.TC ---
Addendum entered and electronically signed by Keaton Palomino MD 10/05/23 10:36:
#Mild bili elevation
#Mild transaminitis
Poor historian 2/2 dementia
US RUQ
follow LFT
Original Note:
Today's Communication/Plan
-
CM for rehab
Assessment / Plan
Assessment / Plan
83yo F with PMHx of CVA, Afib on Eliquis, HTN, dementia, anxiety came after the fall. As per patient she hdoes not remmber it. Found R periprosthetic femoral Fx (to be managed conservatively) and NSVT that subsided after adenosine in ED. Found UTI -
concern for undertreated previous infection
A/P:
#Syncope most likely 2/2 NSVT
#Afib, unspecified
Echo showed no clinically significant valvular disease, preserved EF
telemetry without further arrhythmia
TSH WNL
Cardiology consult: BB, hold Eliquis (risk of traumatic bleeding 2/2 falls and dementia). Might need monitor
#UTI
Ucx pending
ceftriaxone
#R periprosthetic femoral Fx
JORDAN stable, Ortho recommended conservative mgmt
hold Eliquis for possible intervention
PT/OT, when ready
#Dementia, unspecified
#Anxiety d/o
cont home meds
DVT ppx hep
DNR/DNI
I have spent at least 36min reviewing chart, test results communication with consultants and direct patient care
Anticipated Discharge: 24 - 48 hours
Subjective/Interval History
-
Date of Service: October 05, 2023
Objective Data
-
Labs:
Laboratory Results
10/05/23
08:31
WBC 10.5
Hgb 11.9 L
Hct 35.3 L
Plt Count 204
Sodium 137
Potassium 3.7
Chloride 104
Carbon Dioxide 24
BUN 11
Creatinine 0.5 L
Glucose 79
Calcium 8.8
Total Bilirubin 1.5 H
AST 69 H
ALT 51 H
Alkaline Phosphatase 121
Vital Signs:
Vital Signs
Temp Pulse Resp BP Pulse Ox
98.8 F 68 17 134/67 96
10/05/23 08:20 10/05/23 08:20 10/05/23 08:20 10/05/23 08:20 10/05/23 08:20
I&O
10/04/23 10/05/23 10/06/23
06:59 06:59 06:59
Intake Total 240 / 240 840 / 840
Output Total 900 / 900
Balance 240 / 240 -60 / -60
--- NOTE | 2023-10-05 10:44 | W.PN.CARDCBS ---
Today's Communication / Plan
-
No further SVT
Consider restarting Eliquis if not felt to be a fall risk and going to supervised setting with recent CVA
Impression / Plan
-
Primary Real Estate Agent/Broker: Dr. ISABELLE Rivas
Assessment:
Fall
Right proximal femur periprosthetic fracture
SVT
17.78% burden by 24 hour cheese processor 06/2023
ER visit for SVT 09/27/23, received adenosine by EMS
received adenosine in ER 10/02
Dementia
History of remote TIA 1997, CVA 06/2023
CAD status post PCI 1997, further details unknown
Hyperlipidemia
Osteoporosis
Left femur fracture 2020
Fall with left wrist fracture 2023
History of tongue cancer status postresection
History of alcohol abuse
Remote former smoker
DNR/DNI code status
ECHO 06/2023: EF 63%, MAC, mild MR, aortic sclerosis, trace AR
Plan:
No further SVT on oral Lopressor
Eliquis presently on hold. She does not appear to be long-term anticoagulation candidate given recurrent falls but with recent CVA may not have a choice
Await PT evaluation but likely will be in rehab in a monitored setting so might be okay to restart Eliquis
Surgery is not indicated for fracture
preadmit data
-Patient presented with fall and found to have right proximal femur periprosthetic fracture, presumably due to SVT, however patient with dementia, so history was limited
-She had SVT in ER resulting in being given 6 mg of adenosine. She has remained in sinus rhythm since that time on review of telemetry
Progress Note - Real Estate Agent/Broker
Subjective
Date of Service: October 05, 2023
No complaints
Objective
Labs:
10/05/23 08:31
10/05/23 08:31
Labs
Hgb 11.9 g/dL (12.0-16.0) L 10/05/23 08:31
Hct 35.3 % (37.0-47.0) L 10/05/23 08:31
Plt Count 204 10^3/uL (130-400) 10/05/23 08:31
Sodium 137 mmol/L (135-145) 10/05/23 08:31
Potassium 3.7 mmol/L (3.5-5.1) 10/05/23 08:31
BUN 11 mg/dl (7-17) 10/05/23 08:31
Creatinine 0.5 mg/dL (0.6-1.0) L 10/05/23 08:31
Glucose 79 mg/dl (70-99) 10/05/23 08:31
Vital Signs and I&O:
Vital Signs
Temp Pulse Resp BP Pulse Ox
98.8 F 68 17 134/67 96
10/05/23 08:20 10/05/23 08:20 10/05/23 08:20 10/05/23 08:20 10/05/23 08:20
Vital Signs
Temp Pulse Resp BP Pulse Ox
98.8 F 68 17 134/67 96
10/05/23 08:20 10/05/23 08:20 10/05/23 08:20 10/05/23 08:20 10/05/23 08:20
Intake & Output
10/03/23 10/04/23 10/05/23 10/06/23
06:59 06:59 06:59 06:59
Intake Total 240 / 240 840 / 840
Output Total 900 / 900
Balance 240 / 240 -60 / -60
Physical Exam
Physical Exam
General: Well developed, well nourished in NAD.
Neck: Supple, no JVD, HJR, carotids +2 B/L, no bruits bilaterally.
Heart: Non displaced PMI, RRR, no murmurs, No S3, S4, no rubs.
Lungs: Clear to auscultation bilaterally, no wheeze, rhonchi, rubs bilaterally,
normal expiratory phase.
Extremities: No clubbing, cyanosis or edema bilaterally.
Neuro: Grossly nonfocal, awake, alert and oriented x3.
--- NOTE | 2023-10-05 10:48 | CM ---
Reviewed the chart notes and spoke with the patient's daughter Naa via telephone. Discussed the need for the patient to discharge to a SNF/rehab prior to transitioning back to home. Naa in agreement with referrals being sent in her area.
Referrals and PASRR completed in [facility]. CM continues to be available to patient/family and is monitoring medical plan for needs at discharge.
Plan: Discharge to SNF/rehab once bed found. No precert will be required.
--- NOTE | 2023-10-05 11:38 | W.PN.UPDATE ---
Update Note
Progress Note Update
as per further discussion with card - since patient will be in the rehab in supervised settings and history of recent stroke - reasonable to cont Eliquis
[2023-10-05] MEDS: ELIQUIS 2.5 MG PO ×2 (12:02→20:56)
[2023-10-05] MEDS: ROCEPHIN 1000 MG IV (17:18)
[2023-10-05] MEDS: STERILE WATER FOR INJECTION 10 ML IV (17:18)
[2023-10-06] VITALS (8 sets, daily range): BP systolic 94–135; BP diastolic 10–68; PULSE 64; O2SAT 95–96; BMI 21.0
--- NOTE | 2023-10-06 08:26 | W.PN.HOSP.TC ---
Today's Communication/Plan
-
Medically appropriate for d/c to rehab
Assessment / Plan
Assessment / Plan
83yo F with PMHx of CVA, Afib on Eliquis, HTN, dementia, anxiety came after the fall. As per patient she hdoes not remmber it. Found R periprosthetic femoral Fx (to be managed conservatively) and NSVT that subsided after adenosine in ED. Found UTI -
concern for undertreated previous infection. Medically stable for rehab - CM to be informed
A/P:
#Syncope most likely 2/2 NSVT
#Afib, unspecified
Echo showed no clinically significant valvular disease, preserved EF
telemetry without further arrhythmia
TSH WNL
Cardiology consult: BB, cont Eliquis
No recurrence on BB
#UTI
Ucx mixed phil
reasonable to complete 5 days - switch cefuroxime
#R periprosthetic femoral Fx
JORDAN stable, Ortho recommended conservative mgmt
PT/OT, when ready
#Dementia, unspecified
#Anxiety d/o
cont home meds
DVT ppx hep
DNR/DNI
I have spent at least 36min reviewing chart, test results communication with consultants and direct patient care
Anticipated Discharge: Within 24 hours
Subjective/Interval History
-
Date of Service: October 06, 2023
Objective Data
-
Labs:
Laboratory Results
10/06/23
06:35
WBC Pending
Hgb Pending
Hct Pending
Plt Count Pending
Sodium Pending
Potassium Pending
Chloride Pending
Carbon Dioxide Pending
BUN Pending
Creatinine Pending
Glucose Pending
Calcium Pending
Total Bilirubin Pending
AST Pending
ALT Pending
Alkaline Phosphatase Pending
Vital Signs:
Vital Signs
Temp Pulse Resp BP Pulse Ox
98.2 F 66 17 135/65 94
10/06/23 07:33 10/06/23 07:33 10/06/23 07:33 10/06/23 07:33 10/06/23 07:33
I&O
10/05/23 10/06/23 10/07/23
06:59 06:59 06:59
Intake Total 840 / 840 1440 / 1440
Output Total 900 / 900
Balance -60 / -60 1440 / 1440
[2023-10-06] MEDS: LEXAPRO 5 MG PO (08:34)
[2023-10-06] MEDS: ELIQUIS 2.5 MG PO ×2 (08:34→20:07)
[2023-10-06 08:35] LABS: % Basophils 0.4 % (0-2); % Eosinophils 1.9 % (0-6); % Immature Granulocytes 0.2 % (0-0.5); % Lymphocytes 46.3 % (20.5-51.1); % Monocytes 6.2 % (1.7-9.3); Absolute Basophils 0.1 10^3/uL (0-0.2); Absolute Eosinophils 0.2 10^3/uL (0-0.7); Absolute Lymphocytes 5.8 10^3/uL (1.2-3.4); Absolute Monocytes 0.8 10^3/uL (0.1-0.6); Absolute Neutrophils 5.6 10^3/uL (1.4-6.5); Hematocrit 32.5 % (37.0-47.0); Mean Corp Hgb Conc. 33.8 g/dL (33.0-37.0); Mean Corpuscular Volume 85.8 fL (81.0-99.0); Mean Platelet Volume 10.7 fL (7.4-10.4); Nucleated Red Blood Cells % 0 %; Platelet Count 213 10^3/uL (130-400); Red Blood Cell Count 3.79 10^6/uL (4.20-5.40); Red Cell Dist. Width 13.3 % (11.5-14.5); White Blood Cell Count 12.5 10^3/uL (4.8-10.8)
[2023-10-06] MEDS: LOPRESSOR 25 MG PO ×2 (08:35→20:07)
[2023-10-06] MEDS: LIPITOR 80 MG PO (08:35)
[2023-10-06] MEDS: CEFTIN 500 MG PO ×2 (08:39→20:06)
--- NOTE | 2023-10-06 08:54 | PN.CDI ---
CDI
- -
CDI:
Physician Documentation Request
Admit Date: 10/03/23 23:20
Dear Doctor Georgette,
Patient admitted with right periprosthetic fracture.
EMS report, 'Grandson found pt on carpeted floor next to bed, pt says she rolled out of bed and fell to floor.'
Please provide in your note the likely etiology/ etiologies of right periprosthetic fracture:
Multifactorial due to low level fall and age- related osteoporosis
Low level fall only
Other
Use of terms such as suspected, likely, concern for, or probable (associated with a specific diagnosis that is being evaluated, monitored, or treated as if it exists) are acceptable and can be coded in the inpatient setting, when documented at the
time of discharge.
Thank you,
Bren CRAWFORD,RN,CCDS
CDI Specialist
Available via tiger text
Please use your independent medical judgment in providing your response.
--- NOTE | 2023-10-06 09:10 | PN.CDI ---
Addendum entered and electronically signed by Keaton Palomino MD 10/06/23 12:12:
2/ fall
Original Note:
CDI
- -
CDI:
Physician Documentation Request
Admit Date: 10/03/23 23:20
Dear Doctor Georgette,
Patient admitted with right periprosthetic fracture.
EMS report, 'Grandson found pt on carpeted floor next to bed, pt says she rolled out of bed and fell to floor.'
10/04 Cardiology note, 'Assessment:....Osteoporosis.'
Please provide in your note the likely etiology/ etiologies of right periprosthetic fracture:
Multifactorial due to low level fall and age- related osteoporosis
Low level fall only
Other
Use of terms such as suspected, likely, concern for, or probable (associated with a specific diagnosis that is being evaluated, monitored, or treated as if it exists) are acceptable and can be coded in the inpatient setting, when documented at the
time of discharge.
Thank you,
Bren CRAWFORD,RN,CCDS
CDI Specialist
Available via [place] text
Please use your independent medical judgment in providing your response.
[2023-10-06 09:21] LABS: ALT (SGPT) 32 U/L (0-35); AST (SGOT) 33 U/L (14-36); Albumin 3.4 g/dl (3.5-5.0); Alkaline Phosphatase 101 U/L (38-126); Blood Urea Nitrogen 11 mg/dl (7-17); Calcium 8.6 mg/dl (8.4-10.2); Carbon Dioxide 19 mmol/L (22-30); Chloride 106 mmol/L (98-107); Direct Bilirubin 0.2 mg/dl (0.0-0.4); Estimated Creatinine Clearance 55 ml/min; Glucose 82 mg/dl (70-99); Potassium 3.3 mmol/L (3.5-5.1); Sodium 135 mmol/L (135-145); Total Bilirubin 1.2 mg/dl (0.2-1.3); Total Protein 5.6 g/dl (6.3-8.2); eGFR > 60.00
[2023-10-06] MEDS: KLOR-CON 20 MEQ PO (10:38)
[2023-10-06] MEDS: MORPHINE SULFATE 2 MG IV (12:18)
--- NOTE | 2023-10-06 14:29 | CM ---
Addendum entered by Makenna Dupont RN 10/06/23 16:24:
Clinicals faxed to [facility] ([phone]). Contact is [facility] ([phone]).
Addendum entered by Makenna Dupont RN 10/06/23 16:00:
IMM signed and placed on chart.
Original Note:
Reviewed the chart notes and spoke with the patient and her daughter at the bedside. Patient's daughter requested a referral be made to [facility]. Referral sent and left voice message for their admissions department. [facility]illed SNF has accepted the patient. Family in agreement with [facility] if [facility] has no beds. CM continues to be available to patient/family and is monitoring medical plan for needs at discharge.
Plan: Discharge to SNF/rehab once bed found. No precert required.
--- NOTE | 2023-10-06 16:29 | W.PN.UPDATE ---
Update Note
Progress Note Update
tele overnight reviewed. with no further SVT. continue lopressor. as no plans for surgical intervention at this time, eliquis was resumed 10/04. she is awaiting placement. will arrange OP cardiac follow up. will sign off, please call with questions.
[2023-10-07 03:10] VITALS: BP 145/57
[2023-10-07 07:01] VITALS: BP 126/59
[2023-10-07] MEDS: ELIQUIS 2.5 MG PO (07:55)
[2023-10-07] MEDS: LEXAPRO 5 MG PO (07:57)
[2023-10-07] MEDS: CEFTIN 500 MG PO (07:57)
[2023-10-07] MEDS: LIPITOR 80 MG PO (07:57)
[2023-10-07] MEDS: LOPRESSOR 25 MG PO (07:58)
[2023-10-07] MEDS: TYLENOL 650 MG PO (07:59)
--- NOTE | 2023-10-07 09:28 | W.DCSUMMARY ---
Discharge Summary
Discharge Data
Date of Admission: 10/03/23
Date of Discharge: 10/07/23
-
Pending Results: No
Hospital Course
83yo F with PMHx of CVA, Afib on Eliquis, HTN, dementia, anxiety came after the fall. As per patient she hdoes not remmber it. Found R periprosthetic femoral Fx (to be managed conservatively) and NSVT that subsided after adenosine in ED. Found UTI -
concern for undertreated previous infection. Medically stable for rehab. Transaminitis resolved as well as US RUQ showed no intrahepatic duct dilation and patinent is s/p cholecystectomy. No new complains on the day of d/c. SInce Ucx grew mixed
phil - reasonable to complete short course of cefuroxime empirically. Referal to ortho in 3-4 weeks provided
I have spent at least 36min preparing patient discharge, reviewing chart, test results, communication with consultants and direct patient care
Patient was managed for:
#Syncope most likely 2/2 NSVT
#Elevated transaminases 2/2 Fx
#UTI
#R periprosthetic femoral Fx
#Dementia, unspecified
#Anxiety d/o
#CAD s/p PCI
#Hx of Ca of the tongue
#Former smoker
#Former alcohol abuse
Discharge Plan
-
Patient Disposition: [facility]/SNF
Discharge Diagnosis/Procedures: R femoral Fx
Diet: Regular
Activity: As tolerated
Referrals:
Amy Lopez NP [Family Provider] -
Abby Slaughter PA-C [Specified Professional Personl] - 11/17/23 2:00 pm (You have a cardiology follow up appointment at the [place] office with Dr. Rivas's physician registered nurse first assistant, Abby. Please call with questions. )
Woody Castro MD [Active] - in two to three weeks
Prescriptions:
New
sennosides-docusate sodium [Stool Softener-Laxative] 8.6-50 mg Tablet
1 tab PO BIDPRN PRN (Reason: constipation) 10 Days Qty: 10 0RF
cefuroxime axetil 500 mg Tablet
500 mg PO BID 4 Days Qty: 8 0RF
metoprolol tartrate 25 mg Tablet
25 mg PO BID 30 Days Qty: 60 0RF
acetaminophen 325 mg Tablet
650 mg PO Q6HPRN PRN (Reason: mild pain) Qty: 30 0RF
Continued
escitalopram oxalate 5 mg tablet
5 mg PO DAILY
Eliquis 2.5 mg Tablet
2.5 mg PO BID
atorvastatin 80 mg tablet
80 mg PO DAILY
Discontinued
cephalexin 500 mg capsule
500 mg PO BID 7 Days Qty: 14 0RF
Discharge Orders:
Discharge Patient (As Directed); Ordered 10/07/23
Ordered By: Keaton Palomino
Discharge Date and Time
Print Language: ARMENIAN
--- NOTE | 2023-10-07 09:32 | W.PN.HOSP.TC ---
Today's Communication/Plan
-
D/C
Assessment / Plan
Assessment / Plan
83yo F with PMHx of CVA, Afib on Eliquis, HTN, dementia, anxiety came after the fall. As per patient she does not remember it. Found R periprosthetic femoral Fx (to be managed conservatively) and NSVT that subsided after adenosine in ED. Found UTI -
concern for undertreated previous infection. Medically stable for rehab
A/P:
#Syncope most likely 2/2 NSVT
#Afib, unspecified
Echo showed no clinically significant valvular disease, preserved EF
telemetry without further arrhythmia
TSH WNL
Cardiology consult: BB, cont Eliquis
No recurrence on BB
#UTI
Ucx mixed phil
reasonable to complete 5 days - switch cefuroxime
#R periprosthetic femoral Fx
JORDAN stable, Ortho recommended conservative mgmt
PT/OT, when ready
#Dementia, unspecified
#Anxiety d/o
cont home meds
DVT ppx hep
DNR/DNI
I have spent at least 36min reviewing chart, test results communication with consultants and direct patient care
Anticipated Discharge: Today
Subjective/Interval History
-
Date of Service: October 07, 2023
Objective Data
-
Vital Signs:
Vital Signs
Temp Pulse Resp BP Pulse Ox
98.9 F 82 16 129/59 93
10/07/23 07:01 10/07/23 07:58 10/07/23 07:01 10/07/23 07:58 10/07/23 07:01
I&O
10/06/23 10/07/23 10/08/23
06:59 06:59 06:59
Intake Total 1440 / 1440 1440 / 1440
Balance 1440 / 1440 1440 / 1440
Review of Systems
-
Unable to obtain full review of systems at this time due to: Dementia
All other systems: Reviewed and negative
Physical Exam
-
General: Well Developed
HEENT: Normocephalic
Respiratory: Clear to Auscultation
Cardiac: Regular Rhythm
GI: Soft
Musculoskeletal: No Clubbing
[2023-10-07] MEDS: MORPHINE SULFATE 2 MG IV ×2 (10:10→14:53)
[2023-10-07 11:40] VITALS: BP 97/54
[2023-10-07 11:51] VITALS: BP 141/73; BP 97/54; PULSE 58; PULSE 76; O2SAT 96; O2SAT 98
[2023-10-07 15:31] VITALS: BP 105/56
--- NOTE | 2023-10-07 16:08 | CM ---
Discharge Plan of Care: SNF for STR. Preference is [facility]. Referral previously faxed. Contact in admissions is Conrado @ [phone]. Left 2 messages regarding acceptance and bed availability. No auth required. Second preference is [facility].
[2023-10-07 23:31] VITALS: BP 136/66
[2023-10-08] MEDS: CEFTIN PO (01:26)
[2023-10-08] MEDS: ELIQUIS PO (01:27)
[2023-10-08] MEDS: LOPRESSOR PO (01:27)
[2023-10-08] MEDS: MORPHINE SULFATE 4 MG IV (01:27)
[2023-10-08 07:00] VITALS: BP 141/61
[2023-10-08 07:40] VITALS: BP 141/61
[2023-10-08] MEDS: MORPHINE SULFATE 2 MG IV (08:00)
[2023-10-08] MEDS: LOPRESSOR 25 MG PO ×2 (08:01→19:47)
[2023-10-08] MEDS: LEXAPRO 5 MG PO (08:02)
[2023-10-08] MEDS: ELIQUIS 2.5 MG PO ×2 (08:02→19:47)
[2023-10-08] MEDS: CEFTIN 500 MG PO ×2 (08:03→19:47)
[2023-10-08] MEDS: LIPITOR 80 MG PO (08:05)
--- NOTE | 2023-10-08 09:12 | W.PN.HOSP.TC ---
Addendum entered and electronically signed by Keaton Palomino MD 10/08/23 09:38:
Review of the chart showed change in mentation on 09/26/21 that was contributed to UTI with positive Ucx. Also PT/OT notes stating that patient able to partially bear weight on RLE and using a walker, but avoids significant pressure upon the R foot.
Gait is minimal and scuffling. Initial HEad CT on admission unremarkable for acute findings. Since patient is poor historian and has poor compliance with commands as well as that ROM limitation very well can be caused by fracture and pain due to
this: will proceed with plans for d/c to rehab as there is no indication for additional workup, however repeating Head CT would be appropriate
Original Note:
Today's Communication/Plan
-
Head CT
Assessment / Plan
Assessment / Plan
83yo F with PMHx of CVA, Hx of falls with L wrist Fx, Afib on Eliquis, HTN, dementia, anxiety came after the fall. As per patient she does not remember it. Found R periprosthetic femoral Fx (to be managed conservatively) and NSVT that subsided
after adenosine in ED. Found UTI - concern for undertreated previous infection. Medically stable for rehab
A/P:
#Syncope most likely 2/2 NSVT
#Afib, unspecified
Echo showed no clinically significant valvular disease, preserved EF
telemetry without further arrhythmia
TSH WNL
Cardiology consult: BB, cont Eliquis
No recurrence on BB
#UTI
Ucx mixed phil
reasonable to complete 5 days - switch cefuroxime
#R periprosthetic femoral Fx
JORDAN stable, Ortho recommended conservative mgmt
PT/OT, when ready
#Dementia, unspecified
#Anxiety d/o
cont home meds
#HX of recent CVA
Now with limited ambulation (previously needed minimal assistance as per PT notes
Unclear if limitation of RLE 2/2 pain due to Fx, patient is very poor historian 2/[address]
DVT ppx hep
DNR/DNI
I have spent at least 36min reviewing chart, test results communication with consultants and direct patient care
Anticipated Discharge: Within 24 hours
Subjective/Interval History
-
Date of Service: October 08, 2023
Objective Data
-
Vital Signs:
Vital Signs
Temp Pulse Resp BP Pulse Ox
98.6 F 74 18 141/61 96
10/08/23 07:00 10/08/23 08:01 10/08/23 07:00 10/08/23 08:01 10/08/23 07:00
I&O
10/07/23 10/08/23 10/09/23
06:59 06:59 06:59
Intake Total 1440 / 1440 1440 / 1440
Balance 1440 / 1440 1440 / 1440
Review of Systems
-
Unable to obtain full review of systems at this time due to: Dementia
Physical Exam
-
General: No Apparent Distress
Respiratory: Clear to Auscultation
Cardiac: Regular Rhythm
GI: Soft, Nontender and Nondistended
Musculoskeletal: No Clubbing, No Cyanosis and No Edema
Neuro: Awake, Alert and Other (RLE ROM limitiations)
Psych: Calm
--- NOTE | 2023-10-08 12:05 | PTCARENOTE ---
after after AM care and moving pt, her pain is significantly increased from yesterday, she will not straighten the right leg she is remaining in a position, she almost wants to reach and grab or stop you but she restraints herself, she is much
more vocal. She is not the same as yesterday. did head CT for possible stroke this AM not detected. Reached out via TT to Dr. Palomino regarding nurses concerns.
--- NOTE | 2023-10-08 12:44 | W.PN.UPDATE ---
Update Note
Progress Note Update
Ortho had signed off on this patient 3 days ago. With nondisplaced greater troch fracture around right JORDAN (JORDAN via Dr. Johnson at [facility] 9 years ago). Patient has been WBAT on walker with no active/passive abduction. Per RN had been doing well.
Today with much more pain and will not extend leg beyond the position. Patient did not participate with me much during visit. Will request pelvis/right hip films to assess for fracture displacement (which hopefully won't change the course) or
JORDAN dislocation. Will follow back up after films. Bedrest for now.
--- NOTE | 2023-10-08 14:49 | CM ---
Patient with Hx CVA, falls, dementia, Rt JORDAN 2014 with Dx Syncope most likely 2/2 NSVT, Afib, UTI, R periprosthetic femoral Fx. Room air. PT & OT; requires assist of 2, recommend skilled rehab.
SNF referrals reviewed; accepted by [facility], [facility], [facility] & [facility]. No response from patient/family's first choice - [facility].
Spoke with Fely, Nursing [employer], [facility]; there is no [facility] on this weekend. CM would need to call Conrado on Tuesday [phone] re; acceptance/bed availability.
Spoke with [facility], [facility] (ph [phone]); they are able to accept the patient tomorrow. They only have 1 available rehab bed and will hold it once CM confirms family agrees to admission - the rehab bed is
semi-private.
Spoke with patient's daughter Naa; informed her of above. Provided MC rating for [facility]. She discussed this with her siblings, and is now not agreeing for her mother to go there. She would like to wait for [facility] on Tuesday.
Informed her MD now holding d/c due to pain issues and Ortho Doc will see her mother again.
Message from Dr Palomino; he is cancelling d/c today as patient is having more pain and ortho is re-evaluating.
Plan follow up with [facility] on Tue for acceptance/bed availability.
[2023-10-08 15:05] VITALS: BP 139/68
[2023-10-08] MEDS: ULTRAM 25 MG PO ×2 (16:16→22:49)
--- NOTE | 2023-10-08 16:55 | PTCARENOTE ---
Both CT and XR show no changes to fracture. But pt still with same behavior. Concern that Morphine has caused MS change. Tramadol has been added.
[2023-10-08] MEDS: MIRALAX 17 GRAMS PO (22:50)
[2023-10-08 23:33] VITALS: BP 117/66
[2023-10-09] MEDS: ULTRAM 25 MG PO ×2 (02:44→20:08)
[2023-10-09] MEDS: SENOKOT-S 1 TABLET PO (02:45)
[2023-10-09 07:00] VITALS: BP 109/57
--- NOTE | 2023-10-09 08:05 | W.PN.HOSP.TC ---
Addendum entered and electronically signed by Keaton Palomino MD 10/09/23 09:19:
#Leukocytosis
not improving on Abx
still possible 2/2 pain
ID opinion
Original Note:
Today's Communication/Plan
-
C/O L hip pain - CT reviewed, no significant findings on L
repeat XR L femur
Assessment / Plan
Assessment / Plan
83yo F with PMHx of CVA, Hx of falls with L wrist Fx b/l JORDAN 2/2 femoral Fx, lumbar surgery, Afib on Eliquis, HTN, dementia, anxiety came after the fall. As per patient she does not remember it. Found R periprosthetic femoral Fx (to be managed
conservatively) and NSVT that subsided after adenosine in ED. Found UTI - concern for undertreated previous infection. Medically stable for rehab - family awaiting evaluation by [facility]
Over the hospital stay patient was complaining about pain in R hip then L hip, ROM were restricted by pain in both legs, repeated imaging did not show worsening of fracture or new dislocations
A/P:
#Syncope most likely 2/2 NSVT
#Afib, unspecified
Echo showed no clinically significant valvular disease, preserved EF
telemetry without further arrhythmia
TSH WNL
Cardiology consult: BB, cont Eliquis
No recurrence on BB
#UTI
Ucx mixed phil
reasonable to complete 5 days - switch cefuroxime
#R periprosthetic femoral Fx
JORDAN stable, Ortho recommended conservative mgmt
PT/OT, when ready
#Dementia, unspecified
#Anxiety d/o
cont home meds
#HX of recent CVA
Now with limited ambulation (previously needed minimal assistance as per PT notes
Unclear if limitation of RLE 2/2 pain due to Fx, patient is very poor historian 2/[address]
DVT ppx hep
DNR/DNI
I have spent at least 36min reviewing chart, test results communication with consultants and direct patient care
Anticipated Discharge: Within 24 hours
Subjective/Interval History
-
Date of Service: October 09, 2023
Objective Data
-
Labs:
Laboratory Results
10/09/23
08:03
WBC Pending
Hgb Pending
Hct Pending
Plt Count Pending
Sodium Pending
Potassium Pending
Chloride Pending
Carbon Dioxide Pending
BUN Pending
Creatinine Pending
Glucose Pending
Calcium Pending
Total Bilirubin Pending
AST Pending
ALT Pending
Alkaline Phosphatase Pending
Vital Signs:
Vital Signs
Temp Pulse Resp BP Pulse Ox
98.3 F 70 18 109/57 95
10/09/23 07:00 10/09/23 07:00 10/09/23 07:00 10/09/23 07:00 10/09/23 07:00
I&O
10/08/23 10/09/23 10/10/23
06:59 06:59 06:59
Intake Total 1440 / 1440 900 / 900
Balance 1440 / 1440 900 / 900
Review of Systems
-
Unable to obtain full review of systems at this time due to: Dementia
History Source: Patient
Musculoskeletal: Reports Other (L hip pain)
Physical Exam
-
General: Well Developed, Well Nourished and Pain
Cardiac: Regular Rhythm
GI: Soft, Nontender and Nondistended
Genito-urinary: No Costovertebral Tender
Musculoskeletal: No Clubbing, No Cyanosis and No Edema
Skin: Warm
Neuro: Awake, Alert and No Motor Deficits
Psych: Calm
[2023-10-09] MEDS: SENOKOT 8.6 MG PO ×2 (08:19→20:03)
[2023-10-09] MEDS: ELIQUIS 2.5 MG PO ×2 (08:20→20:03)
[2023-10-09] MEDS: LIPITOR 80 MG PO (08:20)
[2023-10-09] MEDS: CEFTIN 500 MG PO (08:20)
[2023-10-09] MEDS: LOPRESSOR 25 MG PO ×2 (08:21→20:02)
[2023-10-09] MEDS: LEXAPRO 5 MG PO (08:22)
[2023-10-09] MEDS: MORPHINE SULFATE 4 MG IV ×2 (08:26→13:21)
[2023-10-09 09:10] LABS: % Basophils 0.4 % (0-2); % Eosinophils 0.6 % (0-6); % Immature Granulocytes 0.3 % (0-0.5); % Monocytes 7.2 % (1.7-9.3); % Neutrophils 48.5 % (42.2-75.2); Absolute Basophils 0.1 10^3/uL (0-0.2); Absolute Eosinophils 0.1 10^3/uL (0-0.7); Absolute Lymphocytes 6.2 10^3/uL (1.2-3.4); Hemoglobin 11.1 g/dL (12.0-16.0); Mean Corp Hgb Conc. 34.7 g/dL (33.0-37.0); Mean Corpuscular Hgb 29.1 pg (27.0-31.0); Mean Corpuscular Volume 83.8 fL (81.0-99.0); Nucleated Red Blood Cells % 0 %; Red Blood Cell Count 3.82 10^6/uL (4.20-5.40); Red Cell Dist. Width 13.3 % (11.5-14.5); White Blood Cell Count 14.4 10^3/uL (4.8-10.8)
[2023-10-09 09:15] LABS: ALT (SGPT) 22 U/L (0-35); AST (SGOT) 43 U/L (14-36); Albumin 3.3 g/dl (3.5-5.0); Alkaline Phosphatase 89 U/L (38-126); Blood Urea Nitrogen 13 mg/dl (7-17); Calcium 8.8 mg/dl (8.4-10.2); Carbon Dioxide 25 mmol/L (22-30); Chloride 100 mmol/L (98-107); Estimated Creatinine Clearance 55 ml/min; Glucose 88 mg/dl (70-99); Potassium 3.6 mmol/L (3.5-5.1); Sodium 133 mmol/L (135-145); Total Protein 5.7 g/dl (6.3-8.2); eGFR > 60.00
--- NOTE | 2023-10-09 10:21 | W.PN.UPDATE ---
Update Note
Progress Note Update
Discussed xray and CT findings with the patient. There has been no displacement of her fracture and her JORDAN is located well. Continue Tx per the primary team. I believe D/c is imminent. Continue PWB as tolerated on walker. Avoid active/passive
abduction. PT/OT. Outpatient Ortho follow-up in [address] Castro
[2023-10-09 16:11] VITALS: BP 111/63; PULSE 80; O2SAT 92; O2SAT 93
--- NOTE | 2023-10-09 18:04 | CON.ID ---
Addendum entered and electronically signed by Vidhya Carter MD 10/09/23 19:08:
stopped cefuroxime.
Original Note:
Consultation
-
Date/Time Consultation Requested: 10/09/23 9:18
Date/Time Consultation Performed: 10/09/23 18:04
Requesting Provider: Dr Palomino
Performing Provider: Dr Carter
Reason for Consultation: persistent leukocytosis
Chief Complaint / Past History
Chief Complaint
Fall, right hip pain
History of Present Illness
Mr Dinh is an 83-year-old female with past medical history of right hip fracture afib, CVA, chronic ambulatory dysfunction presenting from home by EMS with a fall with right hip pain. On arrival here noted to be in SVT and hypotensive, 6 mg of
adenosine administered and she converted to sinus rhythm. The right hip fracture was initially 9 years ago and repaired by Dr. Johnson a orthopedic surgeon at [facility]. On arrival with acute nondisplaced periprosthetic
fracture on the right, left femur also replaced and intact. She denies headache, neck pain, fever, cough, sore throat, shortness of breath, chest pain, abdominal pain, nausea, vomiting, diarrhea, urinary symptoms, new rashes or joint pains. Also
of note, seen in the ER on 09/27/2023 for E. coli UTI and placed on 7-day course of Keflex finishing on the day of arrival 10/03/2023. WBC 11 now 14, hgb 11.1, plt 23, no left shift, cr 0.5, t bili 2.0, ast 43, alt 22, alk phos 89, ua no pyruia,
urine culture this visit 50K mixed phil,
Past History
Additional Past Medical History:
ecoli uti september 27 2023
Coronary artery disease
Dementia
throat ca
A-fib,
CVA 08/01/2023
former smoker
Additional Past Surgical History:
bilateral hip replacements
Coronary artery stented
part of tongue removed
Cholecystectomy
Appendectomy
Tonsillectomy
Allergy History:
Iodinated Contrast Media Allergy (Verified 10/03/23 17:26)
Unknown
Medications Reviewed: Yes
Social History
Tobacco: Former Smoker
Alcohol: None
Drug: None
Family History
Family History: Not Pertinent
Review of Systems
Review of Systems
General: Negative Fever or Chills
All systems: All other systems were reviewed and were negative
Vital Signs
Temp Pulse Resp BP Pulse Ox
98.3 F 70 18 109/57 95
10/09/23 07:00 10/09/23 08:21 10/09/23 07:00 10/09/23 08:21 10/09/23 07:00
Physical Exam
Physical Exam
Constitutional: No Acute Distress
Cardiovascular: Regular Rate and S1/S2; Negative Murmur or Rub
Pulmonary: Clear and Symmetric; Negative Wheezes, Rales or Rhonchi
Gastrointestinal: Soft, Non Tender, Non Distended and Normal Bowel Sounds
Skin: Warm and Dry; Negative Rash or Jaundice
Lab / Diagnostic Study Results
10/09/23 08:29
10/09/23 08:29
Abs Immat Gran (auto) 0.0 10^3/uL (0-0.05) 10/09/23 08:29
Absolute Neuts (auto) 7.0 10^3/uL (1.4-6.5) H 10/09/23 08:29
Absolute Lymphs (auto) 6.2 10^3/uL (1.2-3.4) H 10/09/23 08:29
Absolute Monos (auto) 1.0 10^3/uL (0.1-0.6) H 10/09/23 08:29
Absolute Basos (auto) 0.1 10^3/uL (0-0.2) 10/09/23 08:29
Total Counted 100 10/04/23 06:15
Immature Gran % 0.3 % (0-0.5) 10/09/23 08:29
Neutrophils % 48.5 % (42.2-75.2) 10/09/23 08:29
Lymphocytes % 43.0 % (20.5-51.1) 10/09/23 08:29
Monocytes % 7.2 % (1.7-9.3) 10/09/23 08:29
Eosinophils % 0.6 % (0-6) 10/09/23 08:29
Basophils % 0.4 % (0-2) 10/09/23 08:29
Abs Neuts (Manual) 6.5 10^3/uL (1.4-6.5) 10/04/23 06:15
Segmented Neutrophils 39 % (42-75) L 10/04/23 06:15
Band Neutrophils 3 % (0-3) 10/04/23 06:15
Lymphocytes (Manual) 55 % (20-51) H 10/04/23 06:15
Basophils (Manual) 1 % 10/04/23 06:15
Ur Squamous Epith Cells 0-2 /LPF (Few) 10/04/23 16:22
Microbiology Results
Micro:
10/04/23 16:22 Urine Culture - Final
Urine
Assessment / Plan
Leukocytosis
Acute Hip fracture 10/02
- ua normal, CXR nonrevealing, Abd US: normal
- no specific symptoms beyond expected hip/back pain
- attribute leukocytosis to hip fracture
- follow up with pcp
will see patient again at your request
[2023-10-09 23:00] VITALS: BP 110/62
[2023-10-10] MEDS: MORPHINE SULFATE 4 MG IV (04:54)
[2023-10-10 06:18] LABS: % Basophils 0.4 % (0-2); % Eosinophils 1.4 % (0-6); % Immature Granulocytes 0.3 % (0-0.5); % Lymphocytes 43.9 % (20.5-51.1); % Monocytes 6.6 % (1.7-9.3); % Neutrophils 47.4 % (42.2-75.2); Absolute Basophils 0.1 10^3/uL (0-0.2); Absolute Eosinophils 0.2 10^3/uL (0-0.7); Absolute Monocytes 1.1 10^3/uL (0.1-0.6); Absolute Neutrophils 7.6 10^3/uL (1.4-6.5); Hematocrit 32.8 % (37.0-47.0); Hemoglobin 11.1 g/dL (12.0-16.0); Mean Corp Hgb Conc. 33.8 g/dL (33.0-37.0); Mean Corpuscular Hgb 29.5 pg (27.0-31.0); Mean Corpuscular Volume 87.2 fL (81.0-99.0); Mean Platelet Volume 10.9 fL (7.4-10.4); Nucleated Red Blood Cells % 0 %; Platelet Count 298 10^3/uL (130-400); Red Blood Cell Count 3.76 10^6/uL (4.20-5.40); Red Cell Dist. Width 13.5 % (11.5-14.5)
[2023-10-10 06:36] LABS: ALT (SGPT) 68 U/L (0-35); AST (SGOT) 102 U/L (14-36); Albumin 3.3 g/dl (3.5-5.0); Alkaline Phosphatase 209 U/L (38-126); Blood Urea Nitrogen 15 mg/dl (7-17); Calcium 8.9 mg/dl (8.4-10.2); Carbon Dioxide 27 mmol/L (22-30); Chloride 98 mmol/L (98-107); Estimated Creatinine Clearance 55 ml/min; Glucose 83 mg/dl (70-99); Potassium 3.9 mmol/L (3.5-5.1); Sodium 132 mmol/L (135-145); Total Bilirubin 1.6 mg/dl (0.2-1.3); Total Protein 5.9 g/dl (6.3-8.2); eGFR > 60.00
[2023-10-10 07:00] VITALS: BP 110/52
[2023-10-10] MEDS: LIPITOR 80 MG PO (07:28)
[2023-10-10] MEDS: SENOKOT 8.6 MG PO (07:28)
[2023-10-10] MEDS: LEXAPRO 5 MG PO (07:28)
[2023-10-10] MEDS: LOPRESSOR 25 MG PO (07:28)
[2023-10-10] MEDS: ELIQUIS 2.5 MG PO (07:28)
--- NOTE | 2023-10-10 09:18 | W.PN.HOSP.TC ---
Today's Communication/Plan
-
Discharge to short-term rehab
Assessment / Plan
Assessment / Plan
83yo F with PMHx of CVA, Hx of falls with L wrist Fx b/l JORDAN 2/2 femoral Fx, lumbar surgery, Afib on Eliquis, HTN, dementia, anxiety came after the fall. As per patient she does not remember it. Found R periprosthetic femoral Fx (to be managed
conservatively) and NSVT that subsided after adenosine in ED. Found UTI - concern for undertreated previous infection. Medically stable for rehab - family awaiting evaluation by [facility]
Over the hospital stay patient was complaining about pain in R hip then L hip, ROM were restricted by pain in both legs, repeated imaging did not show worsening of fracture or new dislocations
A/P:
#Syncope most likely 2/2 NSVT
#Afib, unspecified
Echo showed no clinically significant valvular disease, preserved EF
telemetry without further arrhythmia
TSH WNL
Cardiology consult: BB, cont Eliquis
No recurrence on BB
Medically stable for discharge to short-term rehab
#UTI
Ucx mixed phil
Appreciate ID input, no infection, recommend to stop cefuroxime
#R periprosthetic femoral Fx
JORDAN stable, Ortho recommended conservative mgmt
PT/OT, partial right leg weightbearing, with rolling walker
Follow-up with orthopedic surgery in the office
#Dementia, unspecified
#Anxiety d/o
cont home meds
#HX of recent CVA
Now with limited ambulation (previously needed minimal assistance as per PT notes
Unclear if limitation of RLE 2/2 pain due to Fx, patient is very poor historian 2/[address]
DVT ppx hep
DNR/DNI
Total time spent to see the patient on the floor, examine the patient, review data and lab results, discuss treatment plan with patient, nursing staff around 35 minutes.
Physical Exam
General: No acute distress
HEENT: Normocephalic, Atraumatic, EOMI, MMM
Respiratory: Clear to Auscultation bilaterally
Cardiac: Normal S1/S2, Regular Rate and Rhythm
GI: Soft, Nontender, Nondistended, Normal Bowel Sounds
Extremities: No Clubbing, Cyanosis, or Edema
Neuro: Pleasantly confused
Psych: Calm, Cooperative
Anticipated Discharge: Today
Subjective/Interval History
-
Date of Service: October 10, 2023
Patient complains of bilateral leg pain. Denies shortness of breath, no fever, no vomiting.
Objective Data
-
Labs:
Laboratory Results
10/10/23
04:50
WBC 16.0 H
Hgb 11.1 L
Hct 32.8 L
Plt Count 298 D
Sodium 132 L
Potassium 3.9
Chloride 98
Carbon Dioxide 27
BUN 15
Creatinine 0.6
Glucose 83
Calcium 8.9
Total Bilirubin 1.6 H
AST 102 H
ALT 68 H
Alkaline Phosphatase 209 H
Vital Signs:
Vital Signs
Temp Pulse Resp BP Pulse Ox
97.7 F 73 18 110/52 96
10/10/23 07:00 10/10/23 07:28 10/10/23 07:00 10/10/23 07:28 10/10/23 07:00
I&O
10/09/23 10/10/23 10/11/23
06:59 06:59 06:59
Intake Total 900 / 900 1440 / 1440
Balance 900 / 900 1440 / 1440
[2023-10-10 14:30] VITALS: BP 112/52; PULSE 74; O2SAT 96
--- NOTE | 2023-10-10 14:57 | W.DCSUMMARY ---
Discharge Summary
Discharge Data
Date of Admission: 10/03/23
Date of Discharge: 10/10/23
-
Pending Results: No
Hospital Course
Discharge diagnosis:
Syncope
Supraventricular tachycardia
Suspected atrial fibrillation
Bacteriuria
Right periprosthetic femoral fracture
Unspecified dementia
Mild transaminitis
Anxiety disorder
Recent stroke
Consults: Orthopedic surgery, cardiology, ID
Pelvic CT:
1. ACUTE NONDISPLACED PERIPROSTHETIC FRACTURE of the RIGHT PROXIMAL FEMUR which appears unchanged from 10/03/2023.
2. Right total hip arthroplasty in place without CT evidence for hardware loosening.
3. Previous ORIF of a chronic healed left proximal femoral fracture.
4. 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
5. Previous posterior decompression and bilateral posterior instrumentation at L4/L5.
Abd US:
The gallbladder is surgically absent. There is prominence of the common bile duct measuring 9 mm, although this may be secondary to reservoir effect from prior cholecystectomy. No evidence of intrahepatic biliary ductal dilation. If there is concern
for obstruction an MRCP may be considered.
Atherosclerotic plaque of the intra-abdominal aorta.
No hydronephrosis.
Hospital course:
83-year-old female with a past medical history of alcohol abuse, dementia, osteoporosis, coronary artery disease, TIA/CVA, and suspected atrial fibrillation was admitted for SVT. Patient was found to have rapid SVT by EMS, and received 6 mg of
adenosine without conversion to sinus rhythm. Patient was seen in conjunction with cardiology. Cardiology started metoprolol tartrate 25 mg twice a day. She did not have any more recurrence of her SVT.
Patient has suspected atrial fibrillation with recent stroke, and is on Eliquis 2.5 mg twice a day. Given her advanced age and no documented atrial fibrillation in the hospital, risks and benefits of continuing long-term Eliquis were discussed with
the patient. However, she had recent CVA, and therefore was continued on her Eliquis.
She had syncope, likely due to her SVT. Her syncope resulted in an acute nondisplaced periprosthetic fracture of her right proximal femur. She was seen in conjunction with orthopedic surgery, who recommends conservative management with partial
weightbearing of the right lower extremity as tolerated with a walker, PT, pain meds. She was seen by PT, who recommended short-term rehab.
Patient had asymptomatic bacteriuria, and was started on antibiotics. She was seen in conjunction with ID. ID states antibiotics are not needed, and therefore antibiotics were discontinued.
Patient had mild transaminitis. Abdominal ultrasound showed no intrahepatic duct dilation and patient is s/p cholecystectomy.
Patient is medically stable for discharge. She needs to follow-up with her primary care doctor 1 week after she leaves rehab, cardiology, and orthopedic surgery in the office.
Disposition: Short-term rehab
Discharge planning: Required 38 minutes
Discharge Plan
-
Patient Disposition: Snf/SNF
Discharge Diagnosis/Procedures: Right periprosthetic femoral fracture, syncope likely from nonsustained ventricular tachycardia, atrial fibrillation, dementia
Condition: Good
Diet: Low Fat and Low Cholesterol
Activity: As tolerated and With Walker
Additional Activity: Partial weightbearing to the right leg, ambulate as tolerated with a walker
Activity Restrictions/Additional Instructions:
Follow-up with your primary care provider 1 week after you leave rehab, cardiology as scheduled, and orthopedic surgery in the office in 1 month.
Referrals:
Amy Lopez NP [Family Provider] - in one week
Abby Slaughter PA-C [Specified Professional Personl] - 11/17/23 2:00 pm (You have a cardiology follow up appointment at the [place] office with Dr. Rivas's physician camp assistant, Abby. Please call with questions. )
Woody Castro MD [Active] - in one month
Prescriptions:
New
sennosides-docusate sodium [Stool Softener-Laxative] 8.6-50 mg Tablet
1 tab PO BIDPRN PRN (Reason: constipation) 10 Days Qty: 10 0RF
metoprolol tartrate 25 mg Tablet
25 mg PO BID 30 Days Qty: 60 0RF
acetaminophen 325 mg Tablet
650 mg PO Q6HPRN PRN (Reason: mild pain) Qty: 30 0RF
tramadol 50 mg Tablet
25 mg PO Q6HPRN PRN (Reason: moderate-severe pain) 3 Days Qty: 9 0RF
Continued
escitalopram oxalate 5 mg tablet
5 mg PO DAILY
Eliquis 2.5 mg Tablet
2.5 mg PO BID
atorvastatin 80 mg tablet
80 mg PO DAILY
Discontinued
cephalexin 500 mg capsule
500 mg PO BID 7 Days Qty: 14 0RF
Discharge Orders:
Discharge Patient (As Directed); Ordered 10/10/23
Ordered By: Rohit Vasquez
Discharge Date and Time
Discharge Date/Time: 10/10/23 19:00
Print Language: CYMRAES
[2023-10-10 15:00] VITALS: BP 125/56
--- NOTE | 2023-10-10 15:02 | CM ---
Addendum entered by Blanquita Vegas 10/10/23 16:10:
Transport scheduled for 6:45PM.
Original Note:
Patient has been medically cleared for discharge to [facility] for half-way and rehab services. Transport being scheduled. Daughter, team and [facility] liaison aware.
NURSE TO NURSE REPORT # [phone] EXT. [id number]
FAX # [phone]
== END 2023-10-10 19:00 | DRG 536 ==
LOC: 2 SOUTH 23:20
PROVIDERS: Clinical Nurse Specialist Family Health; Internal Medicine; Physician Assistant; ADMITTING PHYSICIAN Internal Medicine; ATTENDING PHYSICIAN Family Medicine; CONSULT PHYSICIAN Orthopaedic Surgery; CONSULT PHYSICIAN Student in an Organized Health Care Education/Training Program; EMERGENCY PHYSICIAN Emergency Medicine; FAMILY PHYSICIAN Nurse Practitioner Family; OTHER PHYSICIAN Internal Medicine Interventional Cardiology
DX: S72.114A Nondisplaced fracture of greater trochanter of right femur, initial encounter for closed fracture (principal); I47.19 Other supraventricular tachycardia; F03.94 Unspecified dementia, unspecified severity, with anxiety; M97.01XA Periprosthetic fracture around internal prosthetic right hip joint, initial encounter; I47.20 Ventricular tachycardia, unspecified; N39.0 Urinary tract infection, site not specified; I69.320 Aphasia following cerebral infarction; R41.89 Other symptoms and signs involving cognitive functions and awareness; F32.A Depression, unspecified; R26.2 Difficulty in walking, not elsewhere classified; B96.20 Unspecified Escherichia coli [E. coli] as the cause of diseases classified elsewhere; E78.00 Pure hypercholesterolemia, unspecified; R74.01 Elevation of levels of liver transaminase levels; I25.10 Atherosclerotic heart disease of native coronary artery without angina pectoris; M81.0 Age-related osteoporosis without current pathological fracture; I95.9 Hypotension, unspecified; F10.11 Alcohol abuse, in remission; I08.0 Rheumatic disorders of both mitral and aortic valves; I10 Essential (primary) hypertension; I70.0 Atherosclerosis of aorta; I48.91 Unspecified atrial fibrillation; W19.XXXA Unspecified fall, initial encounter; Y93.9 Activity, unspecified; Y92.009 Unspecified place in unspecified non-institutional (private) residence as the place of occurrence of the external cause; Z96.641 Presence of right artificial hip joint; Z66 Do not resuscitate; Z79.01 Long term (current) use of anticoagulants; Z87.440 Personal history of urinary (tract) infections; Z85.819 Personal history of malignant neoplasm of unspecified site of lip, oral cavity, and pharynx; Z87.891 Personal history of nicotine dependence; Z91.041 Radiographic dye allergy status; Z95.5 Presence of coronary angioplasty implant and graft; Z85.810 Personal history of malignant neoplasm of tongue; Z87.81 Personal history of (healed) traumatic fracture; Z98.1 Arthrodesis status
CPT/HCPCS: 70450; 71045; 72192; 73502; 73552; 76700; 80053; 81003; 81015; 82248; 83735; 84443; 85025; 87086; 93005; 93306; 96361; 96374; 96375; 97163; 97167; 97530; 97535; 99285; J0153